=== PATIENT | male | born 1975 | race Hispanic/Latino ===

== ENCOUNTER 2019-02-16 13:35 | Emergency (ER) | payer MEDICAID, OTHER ==
--- NOTE | 2019-02-16 13:49 | Emergency Department Report ---
Blank Doc - Documentation Documentation: 43 y o male presents with SI states he took 30 tabs of 10/325mg 2 days ago denies HI/hallucination tearful MH labs orderd
[2019-02-16 14:24] LABS: Basophils # (Auto) 0.1 K/mm3 (0.0-0.1); Basophils % (Auto) 0.9 % (0.0-1.8); Eosinophils # (Auto) 0.2 K/mm3 (0.0-0.4); Eosinophils % (Auto) 2.6 % (0.0-4.3); Hematocrit 44.2 % (35.5-45.6); Hemoglobin 15.1 gm/dl (11.8-15.2); Lymphocytes # (Auto) 2.4 K/mm3 (1.2-5.4); Lymphocytes % (Auto) 31.2 % (13.4-35.0); Mean Corpuscular HGB Conc 34 % (32-34); Mean Corpuscular Volume 89 fl (84-94); Monocytes # (Auto) 0.5 K/mm3 (0.0-0.8); Platelet Count 215 K/mm3 (140-440); Red Cell Distribution Width 13.7 % (13.2-15.2)
[2019-02-16 15:12] LABS: Alanine Aminotransferase 19 units/L (7-56); Albumin 4.6 g/dL (3.9-5); BUN/Creatinine Ratio 10; Blood Urea Nitrogen 8 mg/dL (9-20); Calcium 9.4 mg/dL (8.4-10.2); Hemolysis Index 8
[2019-02-16] MEDS ORDERED: VALIUM PO ONE (15:29)
[2019-02-16 17:00] LABS: Benzodiazepines Screen,Urine PRESUMPTIVE NEGATIVE; Cocaine Screen,Urine PRESUMPTIVE NEGATIVE; Methadone Screen,Urine PRESUMPTIVE NEGATIVE
[2019-02-16 17:14] LABS: Amphetamine Screen,Urine PRESUMPTIVE POSITIVE; Cannabinoid Screen,Urine PRESUMPTIVE POSITIVE; Opiate Screen,Urine PRESUMPTIVE POSITIVE
[2019-02-16] MEDS ORDERED: GEODON IM ONE ×2 (18:54→18:55)
--- NOTE | 2019-02-16 19:44 | Emergency Department Report ---
ED Psych HPI - General Chief Complaint: Psych Stated Complaint: SI Time Seen by Provider: 02/16/19 13:44 Source: patient Mode of arrival: Ambulatory - History of Present Illness Initial Comments: Patient is a 43-year-old male who is here because suicidal ideations. Patient states that he is having thoughts of killing himself. He states he took overdose of Percocet 2 days ago. Patient states he took approximately 30 tablets. Patient is denying any abdominal pain nausea vomiting at this time. He denies any homicidal ideations. - Related Data Previous Rx's Medication Instructions Recorded Last Taken Type Ibuprofen [Motrin 800 MG tab] 800 mg PO Q8HR PRN #30 tablet 12/18/15 01/11/16 Rx traMADol [Ultram 50 MG tab] 50 mg PO Q6HR PRN #20 tablet 12/18/15 Unknown Rx Allergies Allergy/AdvReac Type Severity Reaction Status Date / Time sulfamethoxazole Allergy Hives Verified 11/30/15 01:46 [From Bactrim] trimethoprim [From Bactrim] Allergy Hives Verified 11/30/15 01:46 ED Review of Systems ROS: Stated complaint: SI Other details as noted in HPI Comment: All other systems reviewed and negative ED Past Medical Hx - Past Medical History Previous Medical History?: Yes Hx Hypertension: Yes (diet controlled) Hx Psychiatric Treatment: Yes (opiate dependence, depression) - Surgical History Past Surgical History?: Yes Additional Surgical History: tonsillectomy - Social History Smoking Status: Never Smoker - Medications Home Medications: Home Medications Medication Instructions Recorded Confirmed Last Taken Type Ibuprofen [Motrin 800 MG tab] 800 mg PO Q8HR PRN #30 tablet 12/18/15 01/11/16 Rx traMADol [Ultram 50 MG tab] 50 mg PO Q6HR PRN #20 tablet 12/18/15 Unknown Rx ED Physical Exam - General Limitations: No Limitations General appearance: alert, in no apparent distress - Head Head exam: Present: atraumatic, normocephalic - Eye Eye exam: Present: normal appearance - ENT ENT exam: Present: mucous membranes moist - Neck Neck exam: Present: normal inspection - Respiratory Respiratory exam: Present: normal lung sounds bilaterally. Absent: respiratory distress, wheezes, rales, rhonchi - Cardiovascular Cardiovascular Exam: Present: regular rate, normal rhythm. Absent: systolic murmur, diastolic murmur, rubs, gallop - GI/Abdominal GI/Abdominal exam: Present: soft, normal bowel sounds. Absent: distended, tenderness, guarding, rebound - Rectal Rectal exam: Present: deferred - Extremities Exam Extremities exam: Present: normal inspection - Back Exam Back exam: Present: normal inspection - Neurological Exam Neurological exam: Present: alert, oriented X3 - Psychiatric Psychiatric exam: Present: normal affect, normal mood - Skin Skin exam: Present: warm, dry, intact, normal color. Absent: rash ED Course Vital Signs 02/16/19 02/16/19 02/16/19 13:46 15:46 15:57 Temperature 98.3 F 97.9 F Pulse Rate 116 H 101 H Respiratory 16 18 18 Rate Blood Pressure 152/105 Blood Pressure 121/94 [Left] O2 Sat by Pulse 95 97 99 Oximetry ED Medical Decision Making - Lab Data Result diagrams: 02/16/19 14:01 02/16/19 14:01 Lab Results 02/16/19 02/16/19 02/16/19 Range/Units 14:01 14:01 14:01 WBC 7.6 (4.5-11.0) K/mm3 RBC 5.00 (3.65-5.03) M/mm3 Hgb 15.1 (11.8-15.2) gm/dl Hct 44.2 (35.5-45.6) % MCV 89 (84-94) fl MCH 30 (28-32) pg MCHC 34 (32-34) % RDW 13.7 (13.2-15.2) % Plt Count 215 (140-440) K/mm3 Lymph % (Auto) 31.2 (13.4-35.0) % [place] % (Auto) 7.0 (0.0-7.3) % Eos % (Auto) 2.6 (0.0-4.3) % Baso % (Auto) 0.9 (0.0-1.8) % Lymph # 2.4 (1.2-5.4) K/mm3 [place] # 0.5 (0.0-0.8) K/mm3 Eos # 0.2 (0.0-0.4) K/mm3 Baso # 0.1 (0.0-0.1) K/mm3 Seg Neutrophils % 58.3 (40.0-70.0) % Seg Neutrophils # 4.4 (1.8-7.7) K/mm3 Sodium 143 (137-145) mmol/L Potassium 4.3 (3.6-5.0) mmol/L Chloride 102.5 (98-107) mmol/L Carbon Dioxide 27 (22-30) mmol/L Anion Gap 18 mmol/L BUN 8 L (9-20) mg/dL Creatinine 0.8 (0.8-1.5) mg/dL Estimated GFR > 60 ml/min BUN/Creatinine Ratio 10 % Glucose 146 H (75-100) mg/dL Calcium 9.4 (8.4-10.2) mg/dL Total Bilirubin 0.30 (0.1-1.2) mg/dL AST 24 (5-40) units/L ALT 19 (7-56) units/L Alkaline Phosphatase 92 (35-129) units/L Total Protein 6.9 (6.3-8.2) g/dL Albumin 4.6 (3.9-5) g/dL Albumin/Globulin Ratio 2.0 % Salicylates < 0.3 L (2.8-20.0) mg/dL Urine Opiates Screen Urine Methadone Screen Acetaminophen (10.0-30.0) ug/mL Ur Barbiturates Screen Carbamazepine 2.0 L (4-12) ug/mL Ur Phencyclidine Scrn Ur Amphetamines Screen U Benzodiazepines Scrn [place] 0.1 (0.0-1.2) mmol/L Urine Cocaine Screen U Marijuana (THC) Screen Drugs of Abuse Note Plasma/Serum Alcohol (0-0.07) % 02/16/19 02/16/19 02/16/19 Range/Units 14:01 14:01 14:55 WBC (4.5-11.0) K/mm3 RBC (3.65-5.03) M/mm3 Hgb (11.8-15.2) gm/dl Hct (35.5-45.6) % MCV (84-94) fl MCH (28-32) pg MCHC (32-34) % RDW (13.2-15.2) % Plt Count (140-440) K/mm3 Lymph % (Auto) (13.4-35.0) % [place] % (Auto) (0.0-7.3) % Eos % (Auto) (0.0-4.3) % Baso % (Auto) (0.0-1.8) % Lymph # (1.2-5.4) K/mm3 [place] # (0.0-0.8) K/mm3 Eos # (0.0-0.4) K/mm3 Baso # (0.0-0.1) K/mm3 Seg Neutrophils % (40.0-70.0) % Seg Neutrophils # (1.8-7.7) K/mm3 Sodium (137-145) mmol/L Potassium (3.6-5.0) mmol/L Chloride (98-107) mmol/L Carbon Dioxide (22-30) mmol/L Anion Gap mmol/L BUN (9-20) mg/dL Creatinine (0.8-1.5) mg/dL Estimated GFR ml/min BUN/Creatinine Ratio % Glucose (75-100) mg/dL Calcium (8.4-10.2) mg/dL Total Bilirubin (0.1-1.2) mg/dL AST (5-40) units/L ALT (7-56) units/L Alkaline Phosphatase (35-129) units/L Total Protein (6.3-8.2) g/dL Albumin (3.9-5) g/dL Albumin/Globulin Ratio % Salicylates (2.8-20.0) mg/dL Urine Opiates Screen Presumptive positive Urine Methadone Screen Presumptive negative Acetaminophen < 5.0 L (10.0-30.0) ug/mL Ur Barbiturates Screen Presumptive negative Carbamazepine (4-12) ug/mL Ur Phencyclidine Scrn Presumptive negative Ur Amphetamines Screen Presumptive positive U Benzodiazepines Scrn Presumptive negative [place] (0.0-1.2) mmol/L Urine Cocaine Screen Presumptive negative U Marijuana (THC) Screen Presumptive positive Drugs of Abuse Note Disclamer Plasma/Serum Alcohol < 0.01 (0-0.07) % - Medical Decision Making Patient's acetaminophen level is within normal limits. Patient has no liver dysfunction saenz or jaundice at this time. I do not believe the patient to the overdose of 30 Percocet which would've been approximately 9 g of acetaminophen. Patient is stable and medically cleared at this time. On 1013. Critical care attestation.: If time is entered above; I have spent that time in minutes in the direct care of this critically ill patient, excluding procedure time. ED Disposition Clinical Impression: Suicidal ideation, Encounter for psychiatric assessment Disposition: [id number]/TX-65 PSY HOSP/PSY UNIT Is pt being admited?: No Does the pt Need Aspirin: No Condition: Stable Time of Disposition: 19:44
--- NOTE | 2019-02-17 12:04 | Consultation ---
History of Present Illness - Reason for Consult Consult date: 02/17/19 Reason for consult: Mental Health Evaluation Requesting physician: DELL CAPELLAN - Chief Complaint Chief complaint: "I was suicidal" - History of Present Psychiatric Illness 43-year-old male who presented to the ER for SI's. Today the patient is calm and cooperative during the assessment. He stated that he was suicidal ye sterday, but denies that he took Percocet pills to kill himself. He stated that he took several Percocet pills over several days to get "high." He stated that depression has a been a issue for him for several years along with having a drug addiction. He stated that he was a patient at a local mental health facility for depression recently. He stated that he isn't complaint with his medications (Ef fexor/Buspar). He rate his depression/anxiety 6/10, with 10 being the worse. He denies SI/HI's and AVH's. He denies a poor appetite and erratic sleep. He stated that he self medicate with recreational drugs to lower his anxiety and depression. He denies alcohol consumption (etoh). Medications and Allergies Allergies Allergy/AdvReac Type Severity Reaction Status Date / Time sulfamethoxazole Allergy Hives Verified 11/30/15 01:46 [From Bactrim] trimethoprim [From Bactrim] Allergy Hives Verified 11/30/15 01:46 Home Medications Medication Instructions Recorded Confirmed Last Taken Type Ibuprofen [Motrin 800 MG tab] 800 mg PO Q8HR PRN #30 tablet 12/18/15 02/16/19 01/11/16 Rx traMADol [Ultram 50 MG tab] 50 mg PO Q6HR PRN #20 tablet 12/18/15 02/16/19 Unknown Rx Past psychiatric history - Past Medical History Past Medical History: No medical history Past Surgical History: No surgical history - past Psychiatric treatment and history psychiatric treatment history: Several inpatient psy setting in the past" - Social History Social history: other (Homeless) Mental Status Exam - Vital signs Last Vital Signs Temp 97.3 F L 02/17/19 07:57 Pulse 82 02/17/19 07:57 Resp 18 02/17/19 07:57 BP 144/102 02/17/19 07:57 Pulse Ox 96 02/17/19 07:57 - Exam Narrative exam: MSE Appearance: calm, cooperative Behavior: regular eye contact Speech: regular rate and tone Mood: "tired" Affect: flat Thought Process: circumstantial Thought Content: denies SI/HI's and AVH's Motor Activity: ambulatory Cognition: A/O x 3 Insight: variable to fair Judgment: variable Results Result Diagrams: 02/16/19 14:01 02/16/19 14:01 Abnormal lab results 02/16/19 02/16/19 02/16/19 Range/Units 14:01 14:01 14:01 BUN 8 L (9-20) mg/dL Glucose 146 H (75-100) mg/dL Salicylates < 0.3 L (2.8-20.0) mg/dL Acetaminophen < 5.0 L (10.0-30.0) ug/mL Carbamazepine 2.0 L (4-12) ug/mL All other labs normal. Assessment and Plan Assessment and plan: Impression: MDD. Substance Use DO (amphetamines). Cannabis Use DO. Unspecified Anxiety DO. Intentional vs Unintentional overdose. Today the patient is calm and cooperative during the assessment. The patient is positive for opiates. DDx: Substance Induced Mood DO Recommendation/Plan: Continue 1013 and gather collateral information. Start Effexor 75 mg PO daily for depression and Buspar 7.5 mg PO BID for anxiety. Discussed possible suicidality/medication induced manai with the patient r eference Effexor. Dispo: The patient was referred to inpatient psy services. Will staff with Dr. Selvin Caldera.
[2019-02-17] MEDS: EFFEXOR PO SCH (12:56)
[2019-02-17] MEDS: BUSPAR PO SCH ×2 (12:56→22:11)
[2019-02-17 13:08] LABS: Bilirubin,Urine NEG (Negative); Blood,Urine NEG (Negative); Color,Urine Yellow (Yellow); Mucus,Urine 3+ /HPF; Protein,Urine <15 mg/dL mg/dL (Negative); Urobilinogen,Urine < 2.0 mg/dL (<2.0)
[2019-02-17] MEDS ORDERED: GEODON IM ONE ×2 (17:40→17:53)
[2019-02-17] MEDS ORDERED: ATIVAN ONE (17:47)
[2019-02-17] MEDS ORDERED: ATIVAN IM ONE (17:54)
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
--- NOTE | 2019-02-17 20:23 | XRay Report ---
PROCEDURE: XR FOOT 3+V LT TECHNIQUE: Frontal, lateral, oblique views left foot HISTORY: foot pain. injury COMPARISONS: None FINDINGS: There is no evidence of fracture or subluxation. The joint spaces appear to be maintained. The soft tissues are unremarkable. IMPRESSION: 1. No evidence of fracture or subluxation. This document is electronically signed by Lula Bright MD., February 17 2019 08:21:24 PM ET
[2019-02-18] MEDS: BUSPAR PO SCH ×2 (11:04→21:15)
[2019-02-18] MEDS: EFFEXOR PO SCH (11:30)
[2019-02-18] MEDS ORDERED: IBUPROFEN ONE (12:40)
[2019-02-18] MEDS: IBUPROFEN PO PRN ×3 (13:45→22:12)
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
[2019-02-18] MEDS: NEURONTIN PO SCH (21:15)
[2019-02-18] MEDS ORDERED: DESYREL PO SCH (22:00)
[2019-02-19] MEDS: NEURONTIN PO SCH ×2 (08:17→14:52)
[2019-02-19] MEDS: BUSPAR PO SCH ×2 (08:17→14:52)
[2019-02-19] MEDS ORDERED: EFFEXOR XR PO SCH (10:00)
[2019-02-19] MEDS: IBUPROFEN PO PRN (10:40)
[2019-02-19] MEDS ORDERED: ZESTRIL ONE (11:42)
[2019-02-19] MEDS ORDERED: ZESTRIL PO SCH (12:00)
--- NOTE | 2019-02-19 13:25 | Progress Note ---
Subjective - Reason for Consult Consult date: 02/19/19 Reason for consult: Initial Psychiatric Evaluation - Chief Complaint Chief complaint: Patient not seen. Patient transferred to a psychiatric facility. Mental Status Exam - Vital signs Last Vital Signs Temp 97.8 F 02/19/19 11:10 Pulse 101 H 02/19/19 12:05 Resp 18 02/19/19 11:10 BP 141/86 02/19/19 12:05 Pulse Ox 97 02/19/19 11:10
[2019-02-19 14:56] VITALS: BP 131/90
== END 2019-02-19 17:01 ==
LOC: EEVIPCON 13:35 → ED 13:35
DX: F32.9 Major depressive disorder, single episode, unspecified (principal); F41.9 Anxiety disorder, unspecified; F15.10 Other stimulant abuse, uncomplicated; F12.10 Cannabis abuse, uncomplicated; I10 Essential (primary) hypertension; Z90.89 Acquired absence of other organs; Z88.2 Allergy status to sulfonamides
CPT/HCPCS: 36415; 73630; 80053; 80156; 80178; 80307; 81001; 85025; 96372; 99285; G0480; J2060; J3486; 80320

== ENCOUNTER 2019-04-08 10:19 | Emergency (ER) | payer OTHER ==
[2019-04-08] MEDS ORDERED: MORPHINE IM ONE (11:39)
[2019-04-08] MEDS ORDERED: TORADOL IM ONE (11:40)
--- NOTE | 2019-04-08 11:46 | Emergency Department Report ---
ED Lower Extremity HPI - General Chief Complaint: Extremity Injury, Lower Stated Complaint: LT FOOT PAIN/SWOLLEN Time Seen by Provider: 04/08/19 11:30 Source: patient Mode of arrival: Ambulatory Limitations: No Limitations - History of Present Illness Initial Comments: Mr. Nava is a very pleasant male who injured his left foot 2 days ago. While attempting to hang up small piece in his home, he stepped down forcibly from a 3 foot step ladder landing on his left foot with most of his weight. Immediate swelling. Immediate severe pain. He is only able to walk on his heel due to the pain. Large amount of swelling. No knee or hip pain. No other injury. MD Complaint: foot injury -: Sudden, days(s) (2) Injury: Foot: Left Type of Injury: blunt Place: home Severity: severe Severity scale (0 -10): 10 Improves With: rest Worsens With: weight bearing Context: other (abrupt step from ladder) Associated Symptoms: swelling, able to partially bear weight - Related Data Previous Rx's Medication Instructions Recorded Last Taken Type Ibuprofen [Motrin 800 MG tab] 800 mg PO Q8HR PRN #30 tablet 12/18/15 01/11/16 Rx traMADol [Ultram 50 MG tab] 50 mg PO Q6HR PRN #20 tablet 12/18/15 Unknown Rx Oxycodone HCl/Acetaminophen 1 each PO Q6HR PRN #15 tablet 04/08/19 Unknown Rx [Percocet 10/325 mg] Allergies Allergy/AdvReac Type Severity Reaction Status Date / Time sulfamethoxazole Allergy Hives Verified 04/08/19 10:20 [From Bactrim] trimethoprim [From Bactrim] Allergy Hives Verified 04/08/19 10:20 ED Review of Systems ROS: Stated complaint: LT FOOT PAIN/SWOLLEN Other details as noted in HPI Constitutional: denies: fever, malaise Musculoskeletal: joint swelling, arthralgia Skin: denies: change in color ED Past Medical Hx - Past Medical History Previous Medical History?: Yes Hx Hypertension: Yes Hx Psychiatric Treatment: Yes (opiate dependence, depression) - Surgical History Additional Surgical History: tonsillectomy - Social History Smoking Status: Never Smoker Substance Use Type: None - Medications Home Medications: Home Medications Medication Instructions Recorded Confirmed Last Taken Type Ibuprofen [Motrin 800 MG tab] 800 mg PO Q8HR PRN #30 tablet 12/18/15 02/16/19 01/11/16 Rx traMADol [Ultram 50 MG tab] 50 mg PO Q6HR PRN #20 tablet 12/18/15 02/16/19 Unknown Rx Oxycodone HCl/Acetaminophen 1 each PO Q6HR PRN #15 tablet 04/08/19 Unknown Rx [Percocet 10/325 mg] ED Physical Exam - General Limitations: No Limitations General appearance: alert, in no apparent distress - Eye Eye exam: Absent: scleral icterus, conjunctival injection - Expanded Lower Extremity Exam Left Ankle exam: Present: normal inspection, full ROM. Absent: tenderness Foot/Toe exam: Present: tenderness, swelling (global severe swelling over the metatarsal joints), deformity, dislocation (wide gap in between the first and second toes), tenderness at base of 5th metatarsal. Absent: abrasion, laceration, ecchymosis, erythema, amputation, puncture wound, foreign body, ca lcaneal tenderness Neuro vascular tendon exam: Present: no vascular compromise. Absent: pulse deficit, motor deficit, sensory deficit, extremity cold to touch, foot drop Gait: Positive: not tested/not observed, observed and limited by pain ED Course Vital Signs 04/08/19 10:47 Temperature 98.2 F Pulse Rate 108 H Respiratory 18 Rate Blood Pressure 152/120 O2 Sat by Pulse 98 Oximetry ED Lower Extremity MDM - Radiology Data Radiology results: report reviewed, image reviewed interpreted by me: Lisfranc injury with displacement of the second third fourth and fifth metatarsals left foot Crutches Percocet prescription provided referred to orthopedic surgeon. Strict nonweightbearing status Left posterior splint was applied to the affected extremity under my supervision. After application the extremity was neurovascularly intact with acceptable alignment. Critical care attestation.: If time is entered above; I have spent that time in minutes in the direct care of this critically ill patient, excluding procedure time. ED Disposition Clinical Impression: Lisfranc dislocation Disposition: TO HOME OR SELFCARE Is pt being admited?: No Does the pt Need Aspirin: No Condition: Stable Instructions: Foot Fracture in Adults (ED) Prescriptions: Oxycodone HCl/Acetaminophen [Percocet 10/325 mg] 1 each PO Q6HR PRN #15 tablet PRN Reason: Pain Referrals: ASHLEY MILTON MD [Staff Physician] - 3-5 Days Forms: Work/School Release Form(ED)
--- NOTE | 2019-04-08 12:21 | XRay Report ---
PROCEDURE: XR FOOT 3+V LT TECHNIQUE: 2 views left foot HISTORY: pain swelling s/p fall from ladder 2d ago COMPARISONS: None FINDINGS: The second metatarsal does not line up with the middle cuneiform. Widening of the joint between the c uneiforms and the second metatarsal. Small bone fragments. Findings compatible with Lisfranc disrupti on. Soft tissue swelling over the dorsum of the foot. Remainder of the foot demonstrates no acute fracture. No sizable calcaneal spur. No advanced arthriti s IMPRESSION: Findings compatible with disruption of the Lisfranc joint. Widening of the space between the second m etatarsal and the cuneiforms. Chip fractures. Further evaluation with CT recommended.. [facility] call report initiated at 12:18 PM ET April 08, 2019 This document is electronically signed by Vitaly Cortez MD., April 08 2019 01:18:59 PM ET
[2019-04-08 12:25] VITALS: BP 146/87
== END 2019-04-08 12:25 | disposition home or self-care (01) ==
LOC: ED 10:19
DX: S93.325A Dislocation of tarsometatarsal joint of left foot, initial encounter (principal); I10 Essential (primary) hypertension; F32.9 Major depressive disorder, single episode, unspecified; Z90.89 Acquired absence of other organs; Z88.2 Allergy status to sulfonamides; W11.XXXA Fall on and from ladder, initial encounter; Y93.89 Activity, other specified; Y92.009 Unspecified place in unspecified non-institutional (private) residence as the place of occurrence of the external cause
CPT/HCPCS: 29515; 73630; 96372; 99283; J1885; J2270

== ENCOUNTER 2019-05-02 19:11 | Emergency (ER) | payer OTHER ==
[2019-05-02] MEDS ORDERED: ZESTRIL PO ONE (19:35)
[2019-05-02 20:07] LABS: Basophils # (Auto) 0.1 K/mm3 (0.0-0.1); Basophils % (Auto) 1.1 % (0.0-1.8); Eosinophils # (Auto) 0.2 K/mm3 (0.0-0.4); Eosinophils % (Auto) 2.9 % (0.0-4.3); Hematocrit 42.2 % (35.5-45.6); Hemoglobin 14.6 gm/dl (11.8-15.2); Lymphocytes # (Auto) 2.5 K/mm3 (1.2-5.4); Lymphocytes % (Auto) 34.6 % (13.4-35.0); Mean Corpuscular HGB Conc 35 % (32-34); Mean Corpuscular Volume 87 fl (84-94); Monocytes # (Auto) 0.5 K/mm3 (0.0-0.8); Monocytes % (Auto) 7.3 % (0.0-7.3); Platelet Count 240 K/mm3 (140-440); Red Blood Count 4.83 M/mm3 (3.65-5.03); Red Cell Distribution Width 13.6 % (13.2-15.2)
--- NOTE | 2019-05-02 20:09 | Event Note ---
ED Screening Note ED Screening Note: MED CLEARANCE This initial assessment/diagnostic orders/clinical plan/treatment(s) is/are subject to change based on patients health status, clinical progression and re- assessment by fellow clinical providers in the ED. Further treatment and workup at subsequent clinical providers discretion. Patient/guardian urged not to elope from the ED as their condition may be serious if not clinically assessed and managed. Initial orders include:
[2019-05-02 20:29] LABS: BUN/Creatinine Ratio 20; Blood Urea Nitrogen 16 mg/dL (9-20); Calcium 9.3 mg/dL (8.4-10.2); Hemolysis Index 11
[2019-05-02] MEDS ORDERED: CATAPRES PO ONE (20:30)
[2019-05-02] MEDS ORDERED: CATAPRES ONE (20:33)
[2019-05-02 21:42] VITALS: BP 150/99
--- NOTE | 2019-05-02 22:05 | Emergency Department Report ---
ED Medical Clearance HPI - General Chief complaint: Medical Clearance Stated complaint: HIGH B/P, MEDICAL CLEARANCE Time Seen by Provider: 05/02/19 20:30 Source: patient, EMS Mode of arrival: Ambulatory - History of Present Illness Initial comments: 43 yo sent here for medical clearance. His bp was noted to elevated so he was sent here for bp control. He is on lisinopril at home. Home medications: Previous Rx's Medication Instructions Recorded Last Taken Type Ibuprofen [Motrin 800 MG tab] 800 mg PO Q8HR PRN #30 tablet 12/18/15 01/11/16 Rx traMADol [Ultram 50 MG tab] 50 mg PO Q6HR PRN #20 tablet 12/18/15 Unknown Rx Oxycodone HCl/Acetaminophen 1 each PO Q6HR PRN #15 tablet 04/08/19 Unknown Rx [Percocet 10/325 mg] Lisinopril [Zestril TAB] 20 mg PO QDAY #30 tablet 05/02/19 Unknown Rx Allergies/Adverse reactions: Allergies Allergy/AdvReac Type Severity Reaction Status Date / Time sulfamethoxazole Allergy Hives Verified 04/08/19 10:20 [From Bactrim] trimethoprim [From Bactrim] Allergy Hives Verified 04/08/19 10:20 ED Review of Systems ROS: Stated complaint: HIGH B/P, MEDICAL CLEARANCE Other details as noted in HPI Comment: All other systems reviewed and negative ED Past Medical Hx - Past Medical History Previous Medical History?: Yes Hx Hypertension: Yes Hx Psychiatric Treatment: Yes (opiate dependence, depression) - Surgical History Additional Surgical History: tonsillectomy - Social History Smoking Status: Current Every Day Smoker Substance Use Type: Prescribed - Medications Home Medications: Home Medications Medication Instructions Recorded Confirmed Last Taken Type Ibuprofen [Motrin 800 MG tab] 800 mg PO Q8HR PRN #30 tablet 12/18/15 02/16/19 01/11/16 Rx traMADol [Ultram 50 MG tab] 50 mg PO Q6HR PRN #20 tablet 12/18/15 02/16/19 Unknown Rx Oxycodone HCl/Acetaminophen 1 each PO Q6HR PRN #15 tablet 04/08/19 Unknown Rx [Percocet 10/325 mg] Lisinopril [Zestril TAB] 20 mg PO QDAY #30 tablet 05/02/19 Unknown Rx ED Physical Exam - General Limitations: No Limitations General appearance: alert - Head Head exam: Present: normocephalic - Eye Eye exam: Present: normal appearance, PERRL - ENT ENT exam: Present: mucous membranes moist - Neck Neck exam: Present: normal inspection, full ROM - Respiratory Respiratory exam: Present: normal lung sounds bilaterally - Cardiovascular Cardiovascular Exam: Present: regular rate - GI/Abdominal GI/Abdominal exam: Present: soft, normal bowel sounds - Extremities Exam Extremities exam: Present: normal inspection, full ROM - Back Exam Back exam: Present: normal inspection, full ROM - Neurological Exam Neurological exam: Present: alert, oriented X3, CN II-XII intact - Psychiatric Psychiatric exam: Present: normal affect, normal mood - Skin Skin exam: Present: warm, intact ED Course Vital Signs 05/02/19 05/02/19 19:26 21:41 Temperature 98.3 F Pulse Rate 68 Respiratory 16 Rate Blood Pressure 180/102 150/99 O2 Sat by Pulse 99 Oximetry ED Medical Decision Making - Lab Data Result diagrams: 05/02/19 19:38 05/02/19 19:38 - Medical Decision Making Vital Signs 05/02/19 05/02/19 19:26 21:41 Temperature 98.3 F Pulse Rate 68 Respiratory 16 Rate Blood Pressure 180/102 150/99 O2 Sat by Pulse 99 Oximetry Lab Results 05/02/19 05/02/19 05/02/19 Range/Units 19:38 19:38 19:38 WBC 7.3 (4.5-11.0) K/mm3 RBC 4.83 (3.65-5.03) M/mm3 Hgb 14.6 (11.8-15.2) gm/dl Hct 42.2 (35.5-45.6) % MCV 87 (84-94) fl MCH 30 (28-32) pg MCHC 35 H (32-34) % RDW 13.6 (13.2-15.2) % Plt Count 240 (140-440) K/mm3 Lymph % (Auto) 34.6 (13.4-35.0) % [place] % (Auto) 7.3 (0.0-7.3) % Eos % (Auto) 2.9 (0.0-4.3) % Baso % (Auto) 1.1 (0.0-1.8) % Lymph # 2.5 (1.2-5.4) K/mm3 [place] # 0.5 (0.0-0.8) K/mm3 Eos # 0.2 (0.0-0.4) K/mm3 Baso # 0.1 (0.0-0.1) K/mm3 Seg Neutrophils % 54.1 (40.0-70.0) % Seg Neutrophils # 3.9 (1.8-7.7) K/mm3 Sodium 140 (137-145) mmol/L Potassium 4.3 (3.6-5.0) mmol/L Chloride 100.7 (98-107) mmol/L Carbon Dioxide 28 (22-30) mmol/L Anion Gap 16 mmol/L BUN 16 (9-20) mg/dL Creatinine 0.8 (0.8-1.5) mg/dL Estimated GFR > 60 ml/min BUN/Creatinine Ratio 20 % Glucose 132 H (75-100) mg/dL Calcium 9.3 (8.4-10.2) mg/dL Plasma/Serum Alcohol < 0.01 (0-0.07) % medicated for bp with clonidine and bp decreased pt has no headache, chest pain or sob dc to anchor - Differential Diagnosis htn ED Disposition Clinical Impression: HTN (hypertension), Medical clearance for psychiatric admission Disposition: DC-01 TO HOME OR SELFCARE Is pt being admited?: No Does the pt Need Aspirin: No Condition: Stable Instructions: Hypertension (ED) Prescriptions: Lisinopril [Zestril TAB] 20 mg PO QDAY #30 tablet Referrals: GARRETT ABERNATHY MD [Staff Physician] - 3-5 Days Time of Disposition: 22:04
[2019-05-02 23:55] LABS: Amphetamine Screen,Urine PRESUMPTIVE NEGATIVE; Benzodiazepines Screen,Urine PRESUMPTIVE NEGATIVE; Cocaine Screen,Urine PRESUMPTIVE NEGATIVE; Methadone Screen,Urine PRESUMPTIVE NEGATIVE; Opiate Screen,Urine PRESUMPTIVE NEGATIVE
[2019-05-03 00:08] LABS: Cannabinoid Screen,Urine PRESUMPTIVE POSITIVE
== END 2019-05-02 22:02 | disposition home or self-care (01) ==
LOC: ED 19:11
DX: I10 Essential (primary) hypertension (principal); F32.9 Major depressive disorder, single episode, unspecified; F17.200 Nicotine dependence, unspecified, uncomplicated; Z90.49 Acquired absence of other specified parts of digestive tract; Z79.899 Other long term (current) drug therapy; Z88.2 Allergy status to sulfonamides
CPT/HCPCS: 36415; 80048; 80307; 85025; 99283; G0480; 80320

== ENCOUNTER 2019-07-04 17:53 | Emergency (ER) | payer SELFPAY ==
[2019-07-04 19:12] VITALS: BP 142/99
--- NOTE | 2019-07-04 19:13 | Event Note ---
ED Screening Note Date of service: 07/04/19 Time: 19:12 ED Screening Note: pt was running yesterday when he accidentally fell and cc of left hip and back pain This initial assessment/diagnostic orders/clinical plan/treatment(s) is/are subject to change based on patients health status, clinical progression and re- assessment by fellow clinical providers in the ED. Further treatment and workup at subsequent clinical providers discretion. Patient/guardian urged not to elope from the ED as their condition may be serious if not clinically assessed and managed. Initial orders include: xr hip
[2019-07-04] MEDS ORDERED: PERCOCET 5/325 PO STA (20:30)
== END 2019-07-04 21:45 | disposition left against medical advice (07) ==
LOC: ED 17:53
DX: M25.551 Pain in right hip (principal); Z53.21 Procedure and treatment not carried out due to patient leaving prior to being seen by health care provider

== ENCOUNTER 2019-07-05 00:52 | Emergency (ER) | payer SELFPAY ==
[2019-07-05 01:21] LABS: Basophils # (Auto) 0.1 K/mm3 (0.0-0.1); Basophils % (Auto) 0.9 % (0.0-1.8); Eosinophils # (Auto) 0.2 K/mm3 (0.0-0.4); Eosinophils % (Auto) 2.4 % (0.0-4.3); Hematocrit 40.3 % (35.5-45.6); Hemoglobin 13.7 gm/dl (11.8-15.2); Lymphocytes # (Auto) 2.3 K/mm3 (1.2-5.4); Lymphocytes % (Auto) 25.9 % (13.4-35.0); Mean Corpuscular HGB Conc 34 % (32-34); Mean Corpuscular Volume 90 fl (84-94); Monocytes # (Auto) 0.7 K/mm3 (0.0-0.8); Monocytes % (Auto) 7.7 % (0.0-7.3); Platelet Count 206 K/mm3 (140-440); Red Blood Count 4.51 M/mm3 (3.65-5.03); Red Cell Distribution Width 14.4 % (13.2-15.2)
--- NOTE | 2019-07-05 01:33 | Emergency Department Report ---
ED Psych HPI - General Chief Complaint: Psych Stated Complaint: MEDICAL CLEARANCE Time Seen by Provider: 07/05/19 01:26 Source: patient, EMS, old records reviewed Mode of arrival: Ambulatory - History of Present Illness Initial Comments: Patient is 44 years old male with history of depression and opiate abuse. Patient presented to the ER requesting medical clearance to be admitted to [facility] facility for detox. Patient stated that he is depressed and feeling suicidal. Patient does not have any plan. Patient denied any homicidal ideation. He also denied any visual or auditory hallucination. MD Complaint: suicidal ideation, feels depressed - Related Data Previous Rx's Medication Instructions Recorded Last Taken Type Ibuprofen [Motrin 800 MG tab] 800 mg PO Q8HR PRN #30 tablet 12/18/15 01/11/16 Rx traMADol [Ultram 50 MG tab] 50 mg PO Q6HR PRN #20 tablet 12/18/15 Unknown Rx Oxycodone HCl/Acetaminophen 1 each PO Q6HR PRN #15 tablet 04/08/19 Unknown Rx [Percocet 10/325 mg] Lisinopril [Zestril TAB] 20 mg PO QDAY #30 tablet 05/02/19 Unknown Rx Allergies Allergy/AdvReac Type Severity Reaction Status Date / Time sulfamethoxazole Allergy Hives Verified 04/08/19 10:20 [From Bactrim] trimethoprim [From Bactrim] Allergy Hives Verified 04/08/19 10:20 ED Review of Systems ROS: Stated complaint: MEDICAL CLEARANCE Other details as noted in HPI Comment: All other systems reviewed and negative Constitutional: denies: chills, fever Cardiovascular: denies: chest pain Gastrointestinal: denies: abdominal pain, nausea, vomiting, diarrhea, constipation, hematemesis, melena, hematochezia Genitourinary: denies: urgency, dysuria, frequency, hematuria Musculoskeletal: denies: back pain Neurological: denies: headache, weakness Psychiatric: depression, suicidal thoughts. denies: auditory hallucinations, visual hallucinations, homicidal thoughts ED Past Medical Hx - Past Medical History Previous Medical History?: Yes Hx Hypertension: Yes Hx Psychiatric Treatment: Yes (opiate dependence, depression) - Surgical History Past Surgical History?: Yes Additional Surgical History: tonsillectomy - Social History Smoking Status: Current Every Day Smoker Substance Use Type: Marijuana, Other - Medications Home Medications: Home Medications Medication Instructions Recorded Confirmed Last Taken Type Ibuprofen [Motrin 800 MG tab] 800 mg PO Q8HR PRN #30 tablet 12/18/15 02/16/19 01/11/16 Rx traMADol [Ultram 50 MG tab] 50 mg PO Q6HR PRN #20 tablet 12/18/15 02/16/19 Unknown Rx Oxycodone HCl/Acetaminophen 1 each PO Q6HR PRN #15 tablet 04/08/19 Unknown Rx [Percocet 10/325 mg] Lisinopril [Zestril TAB] 20 mg PO QDAY #30 tablet 05/02/19 Unknown Rx ED Physical Exam - General Limitations: No Limitations General appearance: alert, in no apparent distress - Head Head exam: Present: atraumatic, normocephalic, normal inspection - Eye Eye exam: Present: normal appearance, PERRL - ENT ENT exam: Present: normal exam, normal orophraynx, mucous membranes moist - Neck Neck exam: Present: normal inspection, full ROM. Absent: tenderness, meningismus, lymphadenopathy, thyromegaly - Respiratory Respiratory exam: Present: normal lung sounds bilaterally - Cardiovascular Cardiovascular Exam: Present: regular rate, normal rhythm, normal heart sounds - GI/Abdominal GI/Abdominal exam: Present: soft, normal bowel sounds. Absent: distended, te nderness, guarding, rebound, rigid, organomegaly, mass, bruit, pulsatile mass, hernia - Extremities Exam Extremities exam: Present: normal inspection, full ROM, normal capillary refill. Absent: tenderness, pedal edema, calf tenderness - Back Exam Back exam: Present: normal inspection, full ROM. Absent: CVA tenderness (R), CVA tenderness (L), muscle spasm, paraspinal tenderness, vertebral tenderness - Neurological Exam Neurological exam: Present: alert, oriented X3, CN II-XII intact, normal gait, reflexes normal - Psychiatric Psychiatric exam: Present: normal mood - Skin Skin exam: Present: warm, intact, normal color ED Course Vital Signs 07/05/19 00:54 Temperature 98.5 F Pulse Rate 88 Respiratory 18 Rate Blood Pressure 156/102 O2 Sat by Pulse 98 Oximetry ED Medical Decision Making - Lab Data Result diagrams: 07/05/19 01:02 Critical care attestation.: If time is entered above; I have spent that time in minutes in the direct care of this critically ill patient, excluding procedure time. ED Disposition Clinical Impression: Depression, Suicidal ideation, Opioid abuse Disposition: DC/TX-65 PSY HOSP/PSY UNIT Is pt being admited?: No Condition: Stable
[2019-07-05 01:35] LABS: Amorphous Crystals,Urine Few; Bacteria,Urine 1+ /HPF (Negative); Bilirubin,Urine NEG (Negative); Blood,Urine NEG (Negative); Color,Urine Yellow (Yellow); Mucus,Urine FEW /HPF; Protein,Urine <15 mg/dL mg/dL (Negative)
[2019-07-05 01:37] LABS: BUN/Creatinine Ratio 19; Blood Urea Nitrogen 13 mg/dL (9-20); Calcium 8.9 mg/dL (8.4-10.2); Hemolysis Index 7
[2019-07-05 01:38] LABS: Amphetamine Screen,Urine PRESUMPTIVE NEGATIVE; Benzodiazepines Screen,Urine PRESUMPTIVE NEGATIVE; Methadone Screen,Urine PRESUMPTIVE NEGATIVE; Opiate Screen,Urine PRESUMPTIVE NEGATIVE
[2019-07-05 01:57] LABS: Cannabinoid Screen,Urine PRESUMPTIVE POSITIVE; Cocaine Screen,Urine PRESUMPTIVE POSITIVE
[2019-07-06 02:14] VITALS: BP 138/90
== END 2019-07-06 02:18 ==
LOC: EEVIPCON 00:52 → ED 00:52
DX: F32.9 Major depressive disorder, single episode, unspecified (principal); F17.200 Nicotine dependence, unspecified, uncomplicated; F11.10 Opioid abuse, uncomplicated; Z90.89 Acquired absence of other organs; Z88.2 Allergy status to sulfonamides
CPT/HCPCS: 36415; 80048; 80307; 80320; 81001; 85025; 87086; G0480

== ENCOUNTER 2019-08-16 21:42 | Emergency (ER) | payer SELFPAY ==
--- NOTE | 2019-08-16 22:58 | Event Note ---
ED Screening Note Date of service: 08/16/19 Time: 22:57 ED Screening Note: 44 y/o male comes in for possible UTI. Having pink urine This initial assessment/diagnostic orders/clinical plan/treatment(s) is/are subject to change based on patients health status, clinical progression and re-assessment by fellow clinical providers in the ED. Further treatment and workup at subsequent clinical providers discretion. Patient/guardian urged not to elope from the ED as their condition may be serious if not clinically assessed and managed. Initial orders include:
[2019-08-16 23:57] LABS: Bilirubin,Urine NEG (Negative); Blood,Urine LG (Negative); Color,Urine Yellow (Yellow); Mucus,Urine FEW /HPF; Urobilinogen,Urine < 2.0 mg/dL (<2.0)
[2019-08-17 00:04] LABS: RBC,Urine > 182.0 /HPF (0.0-6.0)
[2019-08-17] MEDS ORDERED: KETOROLAC 30 MG/1 ML INJ IV ONE (01:12)
[2019-08-17] MEDS ORDERED: cefTRIAXone/NS 1 GM/50 ML 1 GM/50 ML BAG IV ONE (01:12)
[2019-08-17] MEDS ORDERED: ONDANSETRON 4 MG/2 ML INJ IV ONE (01:12)
[2019-08-17] MEDS ORDERED: SODIUM CHLORIDE 0.9% 1000 ML 1,000 ML IV ONE (01:13)
[2019-08-17] MEDS ORDERED: TAMSULOSIN 0.4 MG CAP PO ONE (01:42)
[2019-08-17 01:57] LABS: Basophils # (Auto) 0.1 K/mm3 (0.0-0.1); Basophils % (Auto) 0.7 % (0.0-1.8); Eosinophils # (Auto) 0.2 K/mm3 (0.0-0.4); Eosinophils % (Auto) 2.1 % (0.0-4.3); Hemoglobin 12.9 gm/dl (11.8-15.2); Lymphocytes # (Auto) 2.6 K/mm3 (1.2-5.4); Lymphocytes % (Auto) 30.7 % (13.4-35.0); Mean Corpuscular HGB Conc 34 % (32-34); Mean Corpuscular Volume 88 fl (84-94); Monocytes # (Auto) 0.5 K/mm3 (0.0-0.8); Monocytes % (Auto) 6.2 % (0.0-7.3); Platelet Count 259 K/mm3 (140-440)
[2019-08-17 02:07] LABS: Alanine Aminotransferase 15 units/L (7-56); Albumin 3.9 g/dL (3.9-5); BUN/Creatinine Ratio 18; Blood Urea Nitrogen 14 mg/dL (9-20); Calcium 8.3 mg/dL (8.4-10.2); Hemolysis Index 3
--- NOTE | 2019-08-17 02:40 | Cat Scan Report ---
CT ABDOMEN AND PELVIS WITHOUT CONTRAST INDICATION / CLINICAL INFORMATION: right flank pain - kidney stone r/o. TECHNIQUE: Axial CT images were obtained through the abdomen and pelvis without IV contrast. All CT scans at [facility] location are performed using CT dose reduction for ALARA by means of automated exposure control. COMPARISON: None available. FINDINGS: LOWER CHEST: No significant abnormality. LIVER: No significant abnormality. GALLBLADDER: No significant abnormality. BILE DUCTS: No significant abnormality. PANCREAS: No significant abnormality. SPLEEN: No significant abnormality. ADRENALS: No significant abnormality. RIGHT KIDNEY and URETER: Punctate, nonobstructive stone in the right lower pole. No ureteral stone id entified. No hydronephrosis. LEFT KIDNEY and URETER: No significant abnormality. STOMACH and SMALL BOWEL: No significant abnormality. COLON: No significant abnormality. APPENDIX: No significant abnormality. PERITONEUM: No free fluid. No free air. No fluid collection. LYMPH NODES: No significant adenopathy. AORTA and ARTERIES: No significant abnormality. IVC and VEINS: No significant abnormality. URINARY BLADDER: No significant abnormality. REPRODUCTIVE ORGANS: No significant abnormality. ADDITIONAL FINDINGS: None. SKELETAL SYSTEM: No significant abnormality. IMPRESSION: 1. Punctate nonobstructive right renal stone. No ureteral stone or hydronephrosis identified. Signer Name: Pamela Smith MD Signed: 08/17/2019 2:35 AM Workstation Name: [id number]
--- NOTE | 2019-08-17 02:53 | Emergency Department Report ---
ED Abdominal Pain HPI - General Chief Complaint: Abdominal Pain Stated Complaint: RIGHT FLANK PAIN,KIDNEY STONES Time Seen by Provider: 08/16/19 22:55 Source: patient Mode of arrival: Ambulatory Limitations: No Limitations - History of Present Illness Initial Comments: Patient is a 44-year-old white male with a history of kidney stones presents to the ED with complaint of acute onset persistent severe right flank pain that is elevated to the right lower quadrant area with nausea and hematuria for the last 2 days. Patient states that the pain has been persistent and sharp and constant. Patient denies fever, chills, vomiting, dizziness, headache, chest pain, shortness of breath, testicular pain, dysuria, urinary frequency and urgency or diarrhea. Patient states that the pain is typical of his chronic kidney stone pains. MD Complaint: abdominal pain, flank pain (right), other (nausea) -: Sudden, days(s) (2) Location: R flank Radiation: RLQ, R flank Migration to: no migration Severity scale (0 -10): 7 Quality: aching, sharp Consistency: constant Improves With: nothing Worsens With: nothing Associated Symptoms: denies other symptoms, nausea. denies: vomiting, diarrhea, fever, chills, constipation, hematemesis, hematochezia, melena, hematuria, syncope - Related Data Previous Rx's Medication Instructions Recorded Last Taken Type Lisinopril [Zestril TAB] 20 mg PO QDAY #30 tablet 05/02/19 Unknown Rx Ciprofloxacin HCl [Ciprofloxacin 500 mg PO Q12HR #20 tab 08/17/19 Unknown Rx TAB] Ketorolac [Toradol] 10 mg PO Q8H PRN #20 tablet 08/17/19 Unknown Rx Ondansetron [Zofran Odt] 4 mg PO Q6HR PRN #20 tab.rapdis 08/17/19 Unknown Rx Tamsulosin [Flomax] 0.4 mg PO QDAY #7 cap 08/17/19 Unknown Rx oxyCODONE /ACETAMINOPHEN [Percocet 1 tab PO Q6HR PRN #10 tablet 08/17/19 Unknown Rx 5/325] Allergies Allergy/AdvReac Type Severity Reaction Status Date / Time sulfamethoxazole Allergy Hives Verified 04/08/19 10:20 [From Bactrim] trimethoprim [From Bactrim] Allergy Hives Verified 04/08/19 10:20 ED Review of Systems ROS: Stated complaint: RIGHT FLANK PAIN,KIDNEY STONES Other details as noted in HPI Constitutional: denies: chills, fever Eyes: denies: eye pain, eye discharge, vision change ENT: denies: ear pain, throat pain Respiratory: denies: cough, shortness of breath, wheezing Cardiovascular: denies: chest pain, palpitations Endocrine: no symptoms reported Gastrointestinal: abdominal pain (right flank pain). denies: nausea, vomiting, diarrhea Genitourinary: denies: urgency, dysuria Musculoskeletal: back pain (lower). denies: joint swelling, arthralgia Skin: denies: rash, lesions Neurological: denies: headache, weakness, paresthesias Psychiatric: denies: anxiety, depression Hematological/Lymphatic: denies: easy bleeding, easy bruising ED Past Medical Hx - Past Medical History Previous Medical History?: Yes Hx Hypertension: Yes Hx CVA: No Hx Heart Attack/AMI: No Hx Congestive Heart Failure: No Hx Diabetes: No Hx Deep Vein Thrombosis: No Hx Pulmonary Embolism: No Hx GERD: No Hx Liver Disease: No Hx Renal Disease: No Hx of Cancer: No Hx Sickle Cell Disease: No Hx Arthritis: No Hx Headaches / Migraines: No Hx Seizures: No Hx Kidney Stones: No Hx Psychiatric Treatment: Yes (opiate dependence, depression) Hx Asthma: No Hx COPD: No Hx Tuberculosis: No Hx Dementia: No Hx HIV: No Additional medical history: kidney stones - Surgical History Past Surgical History?: Yes Hx Coronary Stent: No Hx Open Heart Surgery: No Hx Pacemaker: No Hx Internal Defibrillator: No Hx Cholecystectomy: No Hx Appendectomy: No Hx Breast Surgery: No Additional Surgical History: tonsillectomy - Social History Smoking Status: Current Every Day Smoker - Medications Home Medications: Home Medications Medication Instructions Recorded Confirmed Last Taken Type Lisinopril [Zestril TAB] 20 mg PO QDAY #30 tablet 05/02/19 07/05/19 Unknown Rx Ciprofloxacin HCl [Ciprofloxacin 500 mg PO Q12HR #20 tab 08/17/19 Unknown Rx TAB] Ketorolac [Toradol] 10 mg PO Q8H PRN #20 tablet 08/17/19 Unknown Rx Ondansetron [Zofran Odt] 4 mg PO Q6HR PRN #20 tab.rapdis 08/17/19 Unknown Rx Tamsulosin [Flomax] 0.4 mg PO QDAY #7 cap 08/17/19 Unknown Rx oxyCODONE /ACETAMINOPHEN [Percocet 1 tab PO Q6HR PRN #10 tablet 08/17/19 U nknown Rx 5/325] ED Physical Exam - General Limitations: No Limitations General appearance: alert, in no apparent distress - Head Head exam: Present: atraumatic, normocephalic, normal inspection - Eye Eye exam: Present: normal appearance, PERRL, EOMI Pupils: Present: normal accommodation - ENT ENT exam: Present: normal exam, normal orophraynx, mucous membranes moist, TM's normal bilaterally, normal external ear exam - Neck Neck exam: Present: normal inspection, full ROM - Respiratory Respiratory exam: Present: normal lung sounds bilaterally. Absent: respiratory distress, wheezes, rales, rhonchi, chest wall tenderness, accessory muscle use - Cardiovascular Cardiovascular Exam: Present: regular rate, normal rhythm, normal heart sounds. Absent: systolic murmur, diastolic murmur, rubs, gallop - GI/Abdominal GI/Abdominal exam: Present: soft, tenderness (Palpable right flank tenderness), normal bowel sounds. Absent: guarding, rebound, hyperactive bowel sounds, hypoactive bowel sounds, organomegaly - Rectal Rectal exam: Present: deferred - Extremities Exam Extremities exam: Present: normal inspection, full ROM, normal capillary refill - Back Exam Back exam: Present: normal inspection, full ROM. Absent: tenderness, CVA tenderness (R), CVA tenderness (L), muscle spasm, paraspinal tenderness - Neurological Exam Neurological exam: Present: alert, oriented X3, CN II-XII intact, normal gait, reflexes normal - Psychiatric Psychiatric exam: Present: normal affect, normal mood - Skin Skin exam: Present: warm, dry, intact, normal color. Absent: rash ED Course Vital Signs 08/16/19 08/16/19 08/17/19 22:02 22:55 01:25 Temperature 98.4 F 98.4 F Pulse Rate 78 82 Respiratory 18 18 16 Rate Blood Pressure 126/85 126/85 O2 Sat by Pulse 99 100 Oximetry 08/17/19 01:55 Temperature Pulse Rate Respiratory 18 Rate Blood Pressure O2 Sat by Pulse Oximetry - Reevaluation(s) Reevaluation #1: 08/17/19 03:23 This is a 44-year-old male with a history of chronic kidney stones who presented to the ED with acute onset right flank pain with nausea and hematuria. In the ED, patient is alert and oriented 3 and is not in distress but appears to be in pain. Patient was treated for pain in the ED and also received normal saline 1 L IV bolus and Zofran for nausea. Lab test results were reviewed and are all nonactionable except for urinalysis that showed significant blood and urinary tract infection. Abdomen pelvis CT scan without contrast shows a punctate nonobstructive right renal stone. No ureteral stone or hydronephrosis identified. On reevaluation, patient's pain is well controlled with medications. Patient also received Rocephin 1 g IV 1 and Flomax 0.4 mg by mouth 1 in the ED. Patient was discharged home on pain medications and antibiotics and advised to follow-up with his primary care physician or urolo gist in 7-10 days for reevaluation. Patient was advised to return to the ED immediately if symptoms get worse. ED Medical Decision Making - Lab Data Result diagrams: 08/17/19 01:21 08/17/19 01:21 - Radiology Data Radiology results: report reviewed, image reviewed Findings [facility] [address] [place] [address] Cat Scan Report Signed Patient: BRANDT MINER MR#: [id number] : 1975 Acct:[id number] Age/Sex: 44 / M ADM Date: 08/16/19 Loc: ED Attending Dr: Ordering Physician: MAINE LEDEZMA Date of Service: 08/17/19 Procedure(s): CT abdomen pelvis wo con Accession Number(s): [id number] cc: MAINE LEDEZMA CT ABDOMEN AND PELVIS WITHOUT CONTRAST INDICATION / CLINICAL INFORMATION: right flank pain - kidney stone r/o. TECHNIQUE: Axial CT images were obtained through the abdomen and pelvis without IV contrast. All CT scans at this location are performed using CT dose reduction for ALARA by means of automated exposure control. COMPARISON: None available. FINDINGS: LOWER CHEST: No significant abnormality. LIVER: No significant abnormality. GALLBLADDER: No significant abnormality. BILE DUCTS: No significant abnormality. PANCREAS: No significant abnormality. SPLEEN: No significant abnormality. ADRENALS: No significant abnormality. RIGHT KIDNEY and URETER: Punctate, nonobstructive stone in the right lower pole. No ureteral stone identified. No hydronephrosis. LEFT KIDNEY and URETER: No significant abnormality. STOMACH and SMALL BOWEL: No significant abnormality. COLON: No significant abnormality. APPENDIX: No significant abnormality. PERITONEUM: No free fluid. No free air. No fluid collection. LYMPH NODES: No significant adenopathy. AORTA and ARTERIES: No significant abnormality. IVC and VEINS: No significant abnormality. URINARY BLADDER: No significant abnormality. REPRODUCTIVE ORGANS: No significant abnormality. ADDITIONAL FINDINGS: None. SKELETAL SYSTEM: No significant abnormality. IMPRESSION: 1. Punctate nonobstructive right renal stone. No ureteral stone or hydronephrosis identified. Signer Name: Pamela Smith MD Signed: 08/17/2019 2:35 AM Workstation Name: [id number] Transcribed By: [facility] Dictated By: Pamela Smith MD Electronically Authenticated By: Pamela Smith MD Signed Date/Time: 08/17/19 0235 DD/ 02 - Medical Decision Making This is a 44-year-old male with a history of chronic kidney stones who presented to the ED with acute onset right flank pain with nausea and hematuria. In the ED, patient is alert and oriented 3 and is not in distress but appears to be in pain. Patient was treated for pain in the ED and also received normal saline 1 L IV bolus and Zofran for nausea. Lab test results were reviewed and are all nonactionable except for urinalysis that showed significant blood and urinary tract infection. Abdomen pelvis CT scan without contrast shows a punctate nonobstructive right renal stone. No ureteral stone or hydronephrosis identified. On reevaluation, patient's pain is well controlled with medications. Patient also received Rocephin 1 g IV 1 and Flomax 0.4 mg by mouth 1 in the ED. Patient was discharged home on pain medications and antibiotics and advised to follow-up with his primary care physician or urologist in 7-10 days for reevaluation. Patient was advised to return to the ED immediately if symptoms get worse. - Differential Diagnosis flank pain, kidney stones, UTI; Appendicitis; Colitis Critical care attestation.: If time is entered above; I have spent that time in minutes in the direct care of this critically ill patient, excluding procedure time. ED Disposition Clinical Impression: Acute abdominal pain in right flank, Right kidney stone, Acute urinary tract infection Disposition: DC-01 TO HOME OR SELFCARE Is pt being admited?: No Does the pt Need Aspirin: No Condition: Stable Instructions: Kidney Stones (ED), Urinary Tract Infection in Men (ED), Flank P ain (ED) Additional Instructions: Take medications with food, drink plenty of fluids and follow-up with your urologist in 5-7 days for reevaluation. Return to the ED immediately if symptoms get worse. Prescriptions: Ciprofloxacin HCl [Ciprofloxacin TAB] 500 mg PO Q12HR #20 tab Tamsulosin [Flomax] 0.4 mg PO QDAY #7 cap oxyCODONE /ACETAMINOPHEN [Percocet 5/325] 1 tab PO Q6HR PRN #10 tablet PRN Reason: Pain Ketorolac [Toradol] 10 mg PO Q8H PRN #20 tablet PRN Reason: Pain Ondansetron [Zofran Odt] 4 mg PO Q6HR PRN #20 tab.rapdis PRN Reason: Nausea Referrals: PRIMARY CARE, [Primary Care Provider] - 3-5 Days Forms: Work/School Release Form(ED) Time of Disposition: 02:51 Print Language: [place]
[2019-08-17 03:24] VITALS: BP 113/64
== END 2019-08-17 03:23 | disposition home or self-care (01) ==
LOC: ED 21:42
DX: N39.0 Urinary tract infection, site not specified (principal); N20.0 Calculus of kidney; I10 Essential (primary) hypertension; F32.9 Major depressive disorder, single episode, unspecified; F17.200 Nicotine dependence, unspecified, uncomplicated; Z90.89 Acquired absence of other organs; Z88.2 Allergy status to sulfonamides
CPT/HCPCS: 36415; 74176; 80053; 81001; 83690; 85025; 87086; 96365; 96375; 99284; J0696; J1885; J2405; J7030

== ENCOUNTER 2019-10-24 10:25 | Emergency (ER) | payer SELFPAY ==
--- NOTE | 2019-10-24 11:16 | XRay Report ---
Left shoulder 3 views INDICATION: Left shoulder pain. IMPRESSION: No fracture or subluxation of the left shoulder is identified. Signer Name: Abraham Han MD Signed: 10/24/2019 11:04 AM Workstation Name: [email or web address]
[2019-10-24] MEDS ORDERED: KETOROLAC 60 MG/2 ML INJ IM ONE (11:27)
--- NOTE | 2019-10-24 11:33 | Emergency Department Report ---
ED Extremity Problem HPI - General Chief complaint: Shoulder Injury Stated complaint: FALL INJURY/LT SHOULDER Time Seen by Provider: 10/24/19 11:14 Source: patient Mode of arrival: Ambulatory Limitations: No Limitations - History of Present Illness Initial comments: Patient is a 44-year-old male who was getting out of his truck this morning and fell. Patient fell onto his left arm after stretching it out to break his fall. Patient states he has pain at the left shoulder this time. Patient denies loss of consciousness or head injury. Patient states the pain is worse with movement of the left upper extremity better with rest. Severity scale (0 -10): 5 Quality: aching Consistency: constant - Related Data Previous Rx's Medication Instructions Recorded Last Taken Type Lisinopril [Zestril TAB] 20 mg PO QDAY #30 tablet 05/02/19 Unknown Rx Ciprofloxacin HCl [Ciprofloxacin 500 mg PO Q12HR #20 tab 08/17/19 Unknown Rx TAB] Ketorolac [Toradol] 10 mg PO Q8H PRN #20 tablet 08/17/19 Unknown Rx Ondansetron [Zofran Odt] 4 mg PO Q6HR PRN #20 tab.rapdis 08/17/19 Unknown Rx Tamsulosin [Flomax] 0.4 mg PO QDAY #7 cap 08/17/19 Unknown Rx oxyCODONE /ACETAMINOPHEN [Percocet 1 tab PO Q6HR PRN #10 tablet 08/17/19 Unknown Rx 5/325] Ibuprofen [Motrin 800 MG tab] 800 mg PO Q8HR PRN #10 tablet 10/24/19 Unknown Rx methOCARBAMOL [Robaxin TAB] 500 mg PO Q6H PRN #14 tablet 10/24/19 Unknown Rx traMADoL [Ultram] 50 mg PO Q6HR PRN #12 tablet 10/24/19 Unknown Rx Allergies Allergy/AdvReac Type Severity Reaction Status Date / Time sulfamethoxazole Allergy Hives Verified 10/24/19 10:35 [From Bactrim] trimethoprim [From Bactrim] Allergy Hives Verified 10/24/19 10:35 ED Review of Systems ROS: Stated complaint: FALL INJURY/LT SHOULDER Other details as noted in HPI Comment: All other systems reviewed and negative ED Past Medical Hx - Past Medical History Previous Medical History?: Yes Hx Hypertension: Yes Hx CVA: No Hx Heart Attack/AMI: No Hx Congestive Heart Failure: No Hx Diabetes: No Hx Deep Vein Thrombosis: No Hx Pulmonary Embolism: No Hx GERD: No Hx Liver Disease: No Hx Renal Disease: No Hx Sickle Cell Disease: No Hx Arthritis: No Hx Headaches / Migraines: No Hx Seizures: No Hx Kidney Stones: No Hx Psychiatric Treatment: Yes (opiate dependence, depression) Hx Asthma: No Hx COPD: No Hx Tuberculosis: No Hx Dementia: No Hx HIV: No Additional medical history: kidney stones. shoulder dislocation - Surgical History Past Surgical History?: Yes Hx Coronary Stent: No Hx Open Heart Surgery: No Hx Pacemaker: No Hx Internal Defibrillator: No Hx Cholecystectomy: No Hx Appendectomy: No Hx Breast Surgery: No Additional Surgical History: tonsillectomy - Social History Smoking Status: Current Some Day Smoker Substance Use Type: None - Medications Home Medications: Home Medications Medication Instructions Recorded Confirmed Last Taken Type Lisinopril [Zestril TAB] 20 mg PO QDAY #30 tablet 05/02/19 07/05/19 Unknown Rx Ciprofloxacin HCl [Ciprofloxacin 500 mg PO Q12HR #20 tab 08/17/19 Unknown Rx TAB] Ketorolac [Toradol] 10 mg PO Q8H PRN #20 tablet 08/17/19 Unknown Rx Ondansetron [Zofran Odt] 4 mg PO Q6HR PRN #20 tab.rapdis 08/17/19 Unknown Rx Tamsulosin [Flomax] 0.4 mg PO QDAY #7 cap 08/17/19 Unknown Rx oxyCODONE /ACETAMINOPHEN [Percocet 1 tab PO Q6HR PRN #10 tablet 08/17/19 Unknown Rx 5/325] Ibuprofen [Motrin 800 MG tab] 800 mg PO Q8HR PRN #10 tablet 10/24/19 Unknown Rx methOCARBAMOL [Robaxin TAB] 500 mg PO Q6H PRN #14 tablet 10/24/19 Unknown Rx traMADoL [Ultram] 50 mg PO Q6HR PRN #12 tablet 10/24/19 Unknown Rx ED Physical Exam - General Limitations: No Limitations General appearance: alert, in no apparent distress - Head Head exam: Present: atraumatic, normocephalic - Eye Eye exam: Present: normal appearance, PERRL, EOMI - ENT ENT exam: Present: mucous membranes moist - Neck Neck exam: Present: normal inspection - Respiratory Respiratory exam: Absent: respiratory distress - Cardiovascular Cardiovascular Exam: Present: regular rate, normal rhythm - GI/Abdominal GI/Abdominal exam: Present: soft - Rectal Rectal exam: Present: deferred - Extremities Exam Extremities exam: Present: normal inspection - Expanded Upper Extremity Exam Left Shoulder Exam: Present: tenderness over AC joint. Absent: full ROM, swelling, abrasion, deformity, dislocation Upper Arm exam: Present: normal inspection, full ROM Elbow exam: Present: normal inspection, full ROM Forearm Wrist exam: Present: normal inspection, full ROM - Back Exam Back exam: Present: normal inspection - Neurological Exam Neurological exam: Present: alert, oriented X3 - Psychiatric Psychiatric exam: Present: normal affect, normal mood - Skin Skin exam: Present: warm, dry, intact, normal color. Absent: rash ED Course Vital Signs 10/24/19 10:33 Temperature 98.3 F Pulse Rate 87 Respiratory 16 Rate Blood Pressure 149/109 O2 Sat by Pulse 98 Oximetry ED Medical Decision Making - Radiology Data Patient: BRANDT MINER MR#: [id number] : 1975 Acct:[id number] Age/Sex: 44 / M ADM Date: 10/24/19 Loc: ED Attending Dr: Ordering Physician: DONN GAUTAM Date of Service: 10/24/19 Procedure(s): XR shoulder 2+V LT Accession Number(s): [id number] cc: DONN GAUTAM Fluoro Time In Minutes: Left shoulder 3 views INDICATION: Left shoulder pain. IMPRESSION: No fracture or subluxation of the left shoulder is identified. Signer Name: Abraham Han MD Signed: 10/24/2019 11:04 AM Workstation Name: [employer] Transcribed By: Dictated By: Abraham Han MD - Medical Decision Making Patient is a 44-year-old male who suffered a fall prior to arrival. Patient clinically has pain over the before meals joint and his x-ray does show slight widening of the before meals joint. Patient likely with before meals sprain however before meals tear could not be ruled out at this time. Patient be placed on a sling and given medication for symptomatically relief and be followed up with orthopedics. Critical care attestation.: If time is entered above; I have spent that time in minutes in the direct care of this critically ill patient, excluding procedure time. ED Disposition Clinical Impression: AC joint derangement Disposition: DC-01 TO HOME OR SELFCARE Is pt being admited?: No Does the pt Need Aspirin: No Condition: Stable Instructions: Acromioclavicular Separation (ED), RICE Therapy (ED) Referrals: ASHLEY MILTON MD [Staff Physician] - 3-5 Days Time of Disposition: 11:32
[2019-10-24 11:47] VITALS: BP 140/100
== END 2019-10-24 11:32 | disposition home or self-care (01) ==
LOC: ED 10:25
DX: M24.9 Joint derangement, unspecified (principal); M25.512 Pain in left shoulder; I10 Essential (primary) hypertension; F32.9 Major depressive disorder, single episode, unspecified; F17.200 Nicotine dependence, unspecified, uncomplicated; Z88.2 Allergy status to sulfonamides; Z90.89 Acquired absence of other organs
CPT/HCPCS: 73030; 96372; 99283; J1885

== ENCOUNTER 2019-12-04 10:13 | Emergency (ER) | payer OTHER ==
[2019-12-04 10:39] VITALS: BP 143/109
--- NOTE | 2019-12-04 11:05 | XRay Report ---
LEFT SHOULDER 3 VIEWS INDICATION / CLINICAL INFORMATION: Fall this morning with left shoulder pain. COMPARISON: 10/24/2019. FINDINGS: BONES / JOINT(S): There are [id number] degenerative changes involving the acromioclavicular cherelle nt and greater tuberosity of the humerus. There is no evidence of fracture or dislocation. SOFT TISSUES: No significant abnormality. ADDITIONAL FINDINGS: The visualized portions of the left lung is clear. IMPRESSION: Osteoarthritis without acute abnormality or significant change. Signer Name: Enoch Acosta MD Signed: 12/04/2019 11:01 AM Workstation Name: [email or web address]
== END 2019-12-04 12:00 | disposition left against medical advice (07) ==
LOC: ED 10:13
DX: M25.512 Pain in left shoulder (principal); Z53.21 Procedure and treatment not carried out due to patient leaving prior to being seen by health care provider

== ENCOUNTER 2020-11-05 20:11 | Emergency (ER) | payer SELFPAY ==
[2020-11-06 00:28] VITALS: BP 146/94
--- NOTE | 2020-11-06 10:29 | Emergency Department Report ---
ED Extremity Problem HPI - General Chief complaint: Extremity Injury, Lower Stated complaint: GOUT RIGHT FOOT Time Seen by Provider: 11/06/20 10:23 Source: patient Mode of arrival: Ambulatory Limitations: No Limitations - History of Present Illness Initial comments: Patient is a 45-year-old male presents emergency room with complaints of acute gout flare that began yesterday. He states that his flare is in his right foot and right big toe. He states he last had a flare a few months ago. He states he attempts to follow the diet for gout but is not completely compliant. He is not on any chronic gout medication. He denies any fall or injury. He denies any numbness or weakness. He states it feels like a burning pain. He denies any fever, chills, vomiting, diarrhea. Past medical history of hypertension. Allergy to Bactrim. - Related Data Previous Rx's Medication Instructions Recorded Last Taken Type lisinopriL [Zestril TAB] 20 mg PO QDAY #30 tablet 05/02/19 Unknown Rx Ciprofloxacin HCl [Ciprofloxacin 500 mg PO Q12HR #20 tab 08/17/19 Unknown Rx TAB] Ketorolac [Toradol] 10 mg PO Q8H PRN #20 tablet 08/17/19 Unknown Rx Ondansetron [Zofran Odt] 4 mg PO Q6HR PRN #20 tab.rapdis 08/17/19 Unknown Rx Tamsulosin [Flomax] 0.4 mg PO QDAY #7 cap 08/17/19 Unknown Rx oxyCODONE /ACETAMINOPHEN [Percocet 1 tab PO Q6HR PRN #10 tablet 08/17/19 Unknown Rx 5/325] Ibuprofen [Motrin 800 MG tab] 800 mg PO Q8HR PRN #10 tablet 10/24/19 Unknown Rx methOCARBAMOL [Robaxin TAB] 500 mg PO Q6H PRN #14 tablet 10/24/19 Unknown Rx traMADoL [Ultram] 50 mg PO Q6HR PRN #12 tablet 10/24/19 Unknown Rx Acetaminophen/Codeine [Tylenol 1 tab PO Q6H PRN #10 tab 05/30/20 Unknown Rx /Codeine # 3 tab] Ketorolac [Toradol] 10 mg PO Q6H PRN #14 tablet 05/30/20 Unknown Rx Colchicine 0.6 mg PO DAILY 1 Days #3 capsule 11/06/20 Unknown Rx Indomethacin 50 mg PO Q8H #21 capsule 11/06/20 Unknown Rx Prednisone [predniSONE 10 mg 10 mg PO .TAPER #1 tab.ds.pk 11/06/20 Unknown Rx (6-Day Pack, 21 Tabs)] traMADoL [Ultram 50 MG tab] 50 mg PO Q6HR PRN #10 tablet 11/06/20 Unknown Rx Allergies Allergy/AdvReac Type Severity Reaction Status Date / Time sulfamethoxazole Allergy Hives Verified 10/24/19 10:35 [From Bactrim] trimethoprim [From Bactrim] Allergy Hives Verified 10/24/19 10:35 ED Review of Systems ROS: Stated complaint: GOUT RIGHT FOOT Other details as noted in HPI Comment: All other systems reviewed and negative ED Past Medical Hx - Past Medical History Previous Medical History?: Yes Hx Hypertension: Yes Hx CVA: No Hx Heart Attack/AMI: No Hx Congestive Heart Failure: No Hx Diabetes: No Hx Deep Vein Thrombosis: No Hx Pulmonary Embolism: No Hx GERD: No Hx Liver Disease: No Hx Renal Disease: No Hx Sickle Cell Disease: No Hx Arthritis: No Hx Headaches / Migraines: No Hx Seizures: No Hx Kidney Stones: No Hx Psychiatric Treatment: Yes (opiate dependence, depression) Hx Asthma: No Hx COPD: No Hx Tuberculosis: No Hx Dementia: No Hx HIV: No Additional medical history: kidney stones, GOUT. shoulder dislocation - Surgical History Past Surgical History?: Yes Hx Coronary Stent: No Hx Open Heart Surgery: No Hx Pacemaker: No Hx Internal Defibrillator: No Hx Cholecystectomy: No Hx Appendectomy: No Hx Breast Surgery: No Additional Surgical History: tonsillectomy - Social History Smoking Status: Current Every Day Smoker Substance Use Type: None - Medications Home Medications: Home Medications Medication Instructions Recorded Confirmed Last Taken Type lisinopriL [Zestril TAB] 20 mg PO QDAY #30 tablet 05/02/19 07/05/19 Unknown Rx Ciprofloxacin HCl [Ciprofloxacin 500 mg PO Q12HR #20 tab 08/17/19 Unknown Rx TAB] Ketorolac [Toradol] 10 mg PO Q8H PRN #20 tablet 08/17/19 Unknown Rx Ondansetron [Zofran Odt] 4 mg PO Q6HR PRN #20 tab.rapdis 08/17/19 Unknown Rx Tamsulosin [Flomax] 0.4 mg PO QDAY #7 cap 08/17/19 Unknown Rx oxyCODONE /ACETAMINOPHEN [Percocet 1 tab PO Q6HR PRN #10 tablet 08/17/19 Unknown Rx 5/325] Ibuprofen [Motrin 800 MG tab] 800 mg PO Q8HR PRN #10 tablet 10/24/19 Unknown Rx methOCARBAMOL [Robaxin TAB] 500 mg PO Q6H PRN #14 tablet 10/24/19 Unknown Rx traMADoL [Ultram] 50 mg PO Q6HR PRN #12 tablet 10/24/19 Unknown Rx Acetaminophen/Codeine [Tylenol 1 tab PO Q6H PRN #10 tab 05/30/20 Unknown Rx /Codeine # 3 tab] Ketorolac [Toradol] 10 mg PO Q6H PRN #14 tablet 05/30/20 Unknown Rx Colchicine 0.6 mg PO DAILY 1 Days #3 capsule 11/06/20 Unknown Rx Indomethacin 50 mg PO Q8H #21 capsule 11/06/20 Unknown Rx Prednisone [predniSONE 10 mg 10 mg PO .TAPER #1 tab.ds.pk 11/06/20 Unknown Rx (6-Day Pack, 21 Tabs)] traMADoL [Ultram 50 MG tab] 50 mg PO Q6HR PRN #10 tablet 11/06/20 Unknown Rx ED Physical Exam - General Limitations: No Limitations General appearance: alert, in no apparent distress - Head Head exam: Present: atraumatic, normocephalic - Eye Eye exam: Present: normal appearance - ENT ENT exam: Present: mucous membranes moist - Respiratory Respiratory exam: Absent: respiratory distress, accessory muscle use - Extremities Exam Extremities exam: Present: other (ttp and edema present to the right big toe and right dorsal foot, mild erythema, FROM of the toes and foot and ankle, neurovascularly intact) - Neurological Exam Neurological exam: Present: alert, oriented X3 - Psychiatric Psychiatric exam: Present: normal affect, normal mood - Skin Skin exam: Present: warm, dry, intact ED Course Vital Signs 11/06/20 00:11 Temperature 97.3 F L Pulse Rate 82 Respiratory 18 Rate Blood Pressure 146/94 O2 Sat by Pulse 98 Oximetry ED Medical Decision Making - Medical Decision Making Patient is a 45-year-old male presents emergency room with complaints of acute gout flare that began yesterday. He states that his flare is in his right foot and right big toe. He states he last had a flare a few months ago. He states he attempts to follow the diet for gout but is not completely compliant. He is not on any chronic gout medication. He denies any fall or injury. He denies any numbness or weakness. He states it feels like a burning pain. He denies any fever, chills, vomiting, diarrhea. Past medical history of hypertension. Allergy to Bactrim. vss. on exam: ttp and edema present to the right big toe and right dorsal foot, mild erythema, FROM of the toes and foot and ankle, neurovascularly intact. Examination appears consistent with acute gout flare. No signs of septic joint at this time. Patient has had no traumatic injury. Given prescription for tramadol, indomethacin, prednisone, colchicine. Advised patient Please take medication as prescribed. Do not drive or operate heavy machinery while taking pain medication. Follow-up with a primary care doctor and discuss a chronic gout medication. Please follow the diet for gout. Return to emergency room for any new or worsening symptoms. - Differential Diagnosis Gout, osteoarthritis, rheumatoid arthritis, strain, sprain, septic joint Critical care attestation.: If time is entered above; I have spent that time in minutes in the direct care of this critically ill patient, excluding procedure time. ED Disposition Clinical Impression: Acute gout Qualifiers: Gout site: foot Gout etiology: unspecified cause Laterality: right Qualified Code(s): M10.9 - Gout, unspecified Disposition: TO HOME OR SELFCARE Is pt being admited?: No Does the pt Need Aspirin: No Condition: Stable Instructions: Low-Purine Eating Plan Additional Instructions: Please take medication as prescribed. Do not drive or operate heavy machinery while taking pain medication. Follow-up with a primary care doctor and discuss a chronic gout medication. Please follow the diet for gout. Return to emergency room for any new or worsening symptoms. Prescriptions: Colchicine 0.6 mg PO DAILY 1 Days #3 capsule Indomethacin 50 mg PO Q8H #21 capsule Prednisone [predniSONE 10 mg (6-Day Pack, 21 Tabs)] 10 mg PO .TAPER #1 tab.ds.pk traMADoL [Ultram 50 MG tab] 50 mg PO Q6HR PRN #10 tablet PRN Reason: Pain , Severe (7-10) Referrals: PRIMARY CARE, [Primary Care Provider] - 2-3 Days Time of Disposition: 10:27 Print Language: TONGAN
== END 2020-11-06 10:40 | disposition home or self-care (01) ==
LOC: ED 20:11
DX: M10.9 Gout, unspecified (principal); I10 Essential (primary) hypertension; F32.9 Major depressive disorder, single episode, unspecified; Z79.899 Other long term (current) drug therapy; Z88.2 Allergy status to sulfonamides; Z88.8 Allergy status to other drugs, medicaments and biological substances
CPT/HCPCS: 99282

== ENCOUNTER 2020-11-06 18:04 | Emergency (ER) | payer SELFPAY ==
[2020-11-06 20:03] VITALS: BP 125/84
--- NOTE | 2020-11-06 20:44 | Emergency Department Report ---
Chief Complaint: Extremity Injury, Lower Stated Complaint: RIGHT FOOT PAIN GOUT - HPI History of Present Illness: The patient was evaluated in the emergency department for symptoms described in the history of present illness. He/she was evaluated in the context of the global COVID-19 pandemic, which necessitated consideration that the patient might be at risk for infection with the virus that causes COVID-19. Institutional protocols and algorithms that pertain to the evaluation of patients at risk for COVID-19 are in a state of rapid change based on information released by regulatory bodies including the CDC and federal and state organizations. These policies and algorithms were followed during the patient's care in the emergency department. Please note that these policies, procedures and recommendations changed on a rapid basis. 45-year-old male presents to the emergency room that was just discharged at 501 for right foot gout pain. Patient states that the medicines is not working. - Exam Vital Signs: Vital Signs 11/06/20 19:53 Temperature 98.1 F Pulse Rate 87 Respiratory 16 Rate Blood Pressure 125/84 O2 Sat by Pulse 97 Oximetry Physical Exam: Patient is alert and oriented x3 no acute distress nontoxic in appearance Patient is ambulatory. MSE screening note: Focused history and physical exam performed. Due to findings the following was ordered: 45-year-old male presents to the emergency room that was just discharged at 501 for right foot gout pain. Patient states that the medicines is not working. Discussed with patient he needs to take his medication or not given him any other narcotics. ED Disposition for MSE Clinical Impression: Acute gout Disposition: Z-07 MED SCREENING EXAM-LEFT Is pt being admited?: No Does the pt Need Aspirin: No Condition: Stable Referrals: PRIMARY CARE, [Primary Care Provider] - 3-5 Days
== END 2020-11-06 21:20 | disposition left against medical advice (07) ==
LOC: ED 18:04
DX: M25.571 Pain in right ankle and joints of right foot (principal); Z53.21 Procedure and treatment not carried out due to patient leaving prior to being seen by health care provider

== ENCOUNTER 2020-11-10 15:32 | Emergency (ER) | payer SELFPAY ==
[2020-11-10 16:25] VITALS: BP 154/103
--- NOTE | 2020-11-10 16:27 | Emergency Department Report ---
ED ENT HPI - General Chief complaint: Dental/Oral Stated complaint: TOOTHACHE Time Seen by Provider: 11/10/20 15:42 Source: patient Mode of arrival: Ambulatory Limitations: No Limitations - History of Present Illness Initial comments: This is a 45-year-old male nontoxic well in appearance with no signs of distress presents to the ED with complaint of toothache. Patient denies any facial swelling. Denies following up with a dentist. Denies any fever, chills, headache, nausea, vomiting, chest pain or SOB. Denies any other complaints. Denies any allergies. MD complaint: tooth pain -: days(s) Location: tooth # 1 - pain here Severity: mild Severity scale (0 -10): 8 Quality: aching Consistency: constant Improves with: none Worsens with: none Associated Symptoms: gum swelling, toothache. denies: fever, cough, pain with swallowing, sore throat, tinnitus, hearing loss, discharge from ear, rhinorrhea - Related Data Previous Rx's Medication Instructions Recorded Last Taken Type lisinopriL [Zestril TAB] 20 mg PO QDAY #30 tablet 05/02/19 Unknown Rx Ciprofloxacin HCl [Ciprofloxacin 500 mg PO Q12HR #20 tab 08/17/19 Unknown Rx TAB] Ketorolac [Toradol] 10 mg PO Q8H PRN #20 tablet 08/17/19 Unknown Rx Ondansetron [Zofran Odt] 4 mg PO Q6HR PRN #20 tab.rapdis 08/17/19 Unknown Rx Tamsulosin [Flomax] 0.4 mg PO QDAY #7 cap 08/17/19 Unknown Rx oxyCODONE /ACETAMINOPHEN [Percocet 1 tab PO Q6HR PRN #10 tablet 08/17/19 Unknown Rx 5/325] Ibuprofen [Motrin 800 MG tab] 800 mg PO Q8HR PRN #10 tablet 10/24/19 Unknown Rx methOCARBAMOL [Robaxin TAB] 500 mg PO Q6H PRN #14 tablet 10/24/19 Unknown Rx traMADoL [Ultram] 50 mg PO Q6HR PRN #12 tablet 10/24/19 Unknown Rx Acetaminophen/Codeine [Tylenol 1 tab PO Q6H PRN #10 tab 05/30/20 Unknown Rx /Codeine # 3 tab] Ketorolac [Toradol] 10 mg PO Q6H PRN #14 tablet 05/30/20 Unknown Rx Colchicine 0.6 mg PO DAILY 1 Days #3 capsule 11/06/20 Unknown Rx Indomethacin 50 mg PO Q8H #21 capsule 11/06/20 Unknown Rx Prednisone [predniSONE 10 mg 10 mg PO .TAPER #1 tab.ds.pk 11/06/20 Unknown Rx (6-Day Pack, 21 Tabs)] traMADoL [Ultram 50 MG tab] 50 mg PO Q6HR PRN #10 tablet 11/06/20 Unknown Rx Amoxicillin/K Clav Tab [Augmentin 1 tab PO Q12HR #20 tab 11/10/20 Unknown Rx 875 mg] Chlorhexidine Mouthwash [Peridex] 15 ml MM BID #1 bottle 11/10/20 Unknown Rx Ibuprofen [Motrin] 600 mg PO Q8H PRN #20 tablet 11/10/20 Unknown Rx Allergies Allergy/AdvReac Type Severity Reaction Status Date / Time sulfamethoxazole Allergy Hives Verified 10/24/19 10:35 [From Bactrim] trimethoprim [From Bactrim] Allergy Hives Verified 10/24/19 10:35 ED Dental HPI - General Chief complaint: Dental/Oral Stated complaint: TOOTHACHE Time Seen by Provider: 11/10/20 15:42 Source: patient Mode of arrival: Ambulatory Limitations: No Limitations - Related Data Previous Rx's Medication Instructions Recorded Last Taken Type lisinopriL [Zestril TAB] 20 mg PO QDAY #30 tablet 05/02/19 Unknown Rx Ciprofloxacin HCl [Ciprofloxacin 500 mg PO Q12HR #20 tab 08/17/19 Unknown Rx TAB] Ketorolac [Toradol] 10 mg PO Q8H PRN #20 tablet 08/17/19 Unknown Rx Ondansetron [Zofran Odt] 4 mg PO Q6HR PRN #20 tab.rapdis 08/17/19 Unknown Rx Tamsulosin [Flomax] 0.4 mg PO QDAY #7 cap 08/17/19 Unknown Rx oxyCODONE /ACETAMINOPHEN [Percocet 1 tab PO Q6HR PRN #10 tablet 08/17/19 Unknown Rx 5/325] Ibuprofen [Motrin 800 MG tab] 800 mg PO Q8HR PRN #10 tablet 10/24/19 Unknown Rx methOCARBAMOL [Robaxin TAB] 500 mg PO Q6H PRN #14 tablet 10/24/19 Unknown Rx traMADoL [Ultram] 50 mg PO Q6HR PRN #12 tablet 10/24/19 Unknown Rx Acetaminophen/Codeine [Tylenol 1 tab PO Q6H PRN #10 tab 05/30/20 Unknown Rx /Codeine # 3 tab] Ketorolac [Toradol] 10 mg PO Q6H PRN #14 tablet 05/30/20 Unknown Rx Colchicine 0.6 mg PO DAILY 1 Days #3 capsule 11/06/20 Unknown Rx Indomethacin 50 mg PO Q8H #21 capsule 11/06/20 Unknown Rx Prednisone [predniSONE 10 mg 10 mg PO .TAPER #1 tab.ds.pk 11/06/20 Unknown Rx (6-Day Pack, 21 Tabs)] traMADoL [Ultram 50 MG tab] 50 mg PO Q6HR PRN #10 tablet 11/06/20 Unknown Rx Amoxicillin/K Clav Tab [Augmentin 1 tab PO Q12HR #20 tab 11/10/20 Unknown Rx 875 mg] Chlorhexidine Mouthwash [Peridex] 15 ml MM BID #1 bottle 11/10/20 Unknown Rx Ibuprofen [Motrin] 600 mg PO Q8H PRN #20 tablet 11/10/20 Unknown Rx Allergies Allergy/AdvReac Type Severity Reaction Status Date / Time sulfamethoxazole Allergy Hives Verified 10/24/19 10:35 [From Bactrim] trimethoprim [From Bactrim] Allergy Hives Verified 10/24/19 10:35 ED Review of Systems ROS: Stated complaint: TOOTHACHE Other details as noted in HPI Comment: All other systems reviewed and negative Constitutional: denies: chills, fever Eyes: denies: eye pain, eye discharge, vision change ENT: dental pain. denies: ear pain, throat pain Respiratory: denies: cough, shortness of breath, wheezing Cardiovascular: denies: chest pain, palpitations Endocrine: no symptoms reported Gastrointestinal: denies: abdominal pain, nausea, diarrhea Genitourinary: denies: urgency, dysuria Musculoskeletal: denies: back pain, joint swelling, arthralgia Skin: denies: rash, lesions Neurological: denies: headache, weakness, paresthesias Psychiatric: denies: anxiety, depression Hematological/Lymphatic: denies: easy bleeding, easy bruising ED Past Medical Hx - Past Medical History Previous Medical History?: Yes Hx Hypertension: Yes Hx CVA: No Hx Heart Attack/AMI: No Hx Congestive Heart Failure: No Hx Diabetes: No Hx Deep Vein Thrombosis: No Hx Pulmonary Embolism: No Hx GERD: No Hx Liver Disease: No Hx Renal Disease: No Hx Sickle Cell Disease: No Hx Arthritis: No Hx Headaches / Migraines: No Hx Seizures: No Hx Kidney Stones: No Hx Psychiatric Treatment: Yes (opiate dependence, depression) Hx Asthma: No Hx COPD: No Hx Tuberculosis: No Hx Dementia: No Hx HIV: No Additional medical history: kidney stones, GOUT. shoulder dislocation - Surgical History Hx Coronary Stent: No Hx Open Heart Surgery: No Hx Pacemaker: No Hx Internal Defibrillator: No Hx Cholecystectomy: No Hx Appendectomy: No Hx Breast Surgery: No Additional Surgical History: tonsillectomy - Social History Smoking Status: Never Smoker Substance Use Type: None - Medications Home Medications: Home Medications Medication Instructions Recorded Confirmed Last Taken Type lisinopriL [Zestril TAB] 20 mg PO QDAY #30 tablet 05/02/19 07/05/19 Unknown Rx Ciprofloxacin HCl [Ciprofloxacin 500 mg PO Q12HR #20 tab 08/17/19 Unknown Rx TAB] Ketorolac [Toradol] 10 mg PO Q8H PRN #20 tablet 08/17/19 Unknown Rx Ondansetron [Zofran Odt] 4 mg PO Q6HR PRN #20 tab.rapdis 08/17/19 Unknown Rx Tamsulosin [Flomax] 0.4 mg PO QDAY #7 cap 08/17/19 Unknown Rx oxyCODONE /ACETAMINOPHEN [Percocet 1 tab PO Q6HR PRN #10 tablet 08/17/19 Unknown Rx 5/325] Ibuprofen [Motrin 800 MG tab] 800 mg PO Q8HR PRN #10 tablet 10/24/19 Unknown Rx methOCARBAMOL [Robaxin TAB] 500 mg PO Q6H PRN #14 tablet 10/24/19 Unknown Rx traMADoL [Ultram] 50 mg PO Q6HR PRN #12 tablet 10/24/19 Unknown Rx Acetaminophen/Codeine [Tylenol 1 tab PO Q6H PRN #10 tab 05/30/20 Unknown Rx /Codeine # 3 tab] Ketorolac [Toradol] 10 mg PO Q6H PRN #14 tablet 05/30/20 Unknown Rx Colchicine 0.6 mg PO DAILY 1 Days #3 capsule 11/06/20 Unknown Rx Indomethacin 50 mg PO Q8H #21 capsule 11/06/20 Unknown Rx Prednisone [predniSONE 10 mg 10 mg PO .TAPER #1 tab.ds.pk 11/06/20 Unknown Rx (6-Day Pack, 21 Tabs)] traMADoL [Ultram 50 MG tab] 50 mg PO Q6HR PRN #10 tablet 11/06/20 Unknown Rx Amoxicillin/K Clav Tab [Augmentin 1 tab PO Q12HR #20 tab 11/10/20 Unknown Rx 875 mg] Chlorhexidine Mouthwash [Peridex] 15 ml MM BID #1 bottle 11/10/20 Unknown Rx Ibuprofen [Motrin] 600 mg PO Q8H PRN #20 tablet 11/10/20 Unknown Rx ED Physical Exam - General Limitations: No Limitations General appearance: alert, in no apparent distress - Head Head exam: Present: atraumatic, normocephalic - Eye Eye exam: Present: normal appearance - Expanded ENT Exam Expanded Ear exam: Present: normal external inspection Mouth exam: Present: normal external inspection, tongue normal. Absent: drooling, trismus, muffled voice Teeth exam: Present: dental caries, fractured tooth #, dental tenderness #, gingival enlargement, other (no facial swelling.) Throat exam: Positive: normal inspection, other (uvula midline). Negative: tonsillar erythema, tonsillomegaly, tonsillar exudate, R peritonsillar mass, L peritonsillar mass - Neck Neck exam: Present: normal inspection, full ROM. Absent: tenderness, meningismus, lymphadenopathy - Respiratory Respiratory exam: Absent: respiratory distress - Cardiovascular Cardiovascular Exam: Present: regular rate, normal rhythm, normal heart sounds - Extremities Exam Extremities exam: Present: normal inspection, full ROM - Back Exam Back exam: Present: normal inspection, full ROM - Neurological Exam Neurological exam: Present: alert, oriented X3, normal gait - Psychiatric Psychiatric exam: Present: normal affect, normal mood - Skin Skin exam: Present: warm, dry, intact, normal color. Absent: rash ED Course Vital Signs 11/10/20 15:41 Temperature 97.3 F L Pulse Rate 88 Respiratory 18 Rate Blood Pressure 154/103 O2 Sat by Pulse 94 Oximetry - Reevaluation(s) Reevaluation #1: 11/10/20 16:25 Patient is speaking in full sentences with no signs of distress noted. ED Medical Decision Making - Medical Decision Making Patient was instructed to Follow-up with a primary care doctor in 3-5 days or if symptoms worsen and continue return to emergency room as soon as possible. At time of discharge, the patient does not seem toxic or ill in appearance. No acute signs of distress noted. Patient agrees to discharge treatment plan of care. No further questions noted by the patient. Critical care attestation.: If time is entered above; I have spent that time in minutes in the direct care of this critically ill patient, excluding procedure time. ED Disposition Clinical Impression: Dental caries, Gingivitis Disposition: TO HOME OR SELFCARE Is pt being admited?: No Does the pt Need Aspirin: No Condition: Stable Additional Instructions: Follow-up with a dentist doctor in 3-5 days or if symptoms worsen and continue return to emergency room as soon as possible. Prescriptions: Amoxicillin/K Clav Tab [Augmentin 875 mg] 1 tab PO Q12HR #20 tab Ibuprofen [Motrin] 600 mg PO Q8H PRN #20 tablet PRN Reason: Pain Chlorhexidine Mouthwash [Peridex] 15 ml MM BID #1 bottle Referrals: PRIMARY CAREMD [Referring] - 3-5 Days ANGELINE GONZALES MD [Staff Physician] - 3-5 Days [facility] [Outside] - 3-5 Days Forms: Work/School Release Form(ED) Time of Disposition: 16:31
== END 2020-11-10 17:38 | disposition home or self-care (01) ==
LOC: ED 15:32
DX: K05.10 Chronic gingivitis, plaque induced (principal); K02.9 Dental caries, unspecified; I10 Essential (primary) hypertension; Z79.899 Other long term (current) drug therapy; Z88.2 Allergy status to sulfonamides; Z88.8 Allergy status to other drugs, medicaments and biological substances; Z90.49 Acquired absence of other specified parts of digestive tract
CPT/HCPCS: 99282

== ENCOUNTER 2020-11-12 21:48 | Emergency (ER) | payer SELFPAY ==
[2020-11-12] MEDS ORDERED: ONDANSETRON 4 MG ODT TAB PO ONE (22:00)
--- NOTE | 2020-11-12 22:00 | Emergency Department Report ---
Blank Doc - Documentation Documentation: 45-year-old male tobacco utilized and cannabis usually reports last month and on yesterday and reports he did he woke this morning complaining of nausea and and vomiting with cramping to the upper abdomen of unknown etiology reports no hemoptysis no hematemesis hematochezia no fevers, chills, sweats no chest pain or palpitations no traumatic injuries. This initial assessment/diagnostic orders/clinical plan/treatment(s) is/are subject to change based on patients health status, clinical progression and re- assessment by fellow clinical providers in the ED. Further treatment and workup at subsequent clinical providers discretion. Patient/guardian urged not to elope from the ED as their condition may be serious if not clinically assessed and managed. Initial orders include: Labs, entire antiemetics
[2020-11-12 22:01] VITALS: BP 139/83
[2020-11-12 23:05] LABS: Basophils # (Auto) 0.1 K/mm3 (0.0-0.1); Basophils % (Auto) 0.6 % (0.0-1.8); Eosinophils # (Auto) 0.1 K/mm3 (0.0-0.4); Hematocrit 39.6 % (35.5-45.6); Hemoglobin 13.8 gm/dl (11.8-15.2); Lymphocytes # (Auto) 3.3 K/mm3 (1.2-5.4); Lymphocytes % (Auto) 32.7 % (13.4-35.0); Mean Corpuscular HGB Conc 35 % (32-34); Mean Corpuscular Volume 89 fl (84-94); Monocytes # (Auto) 0.7 K/mm3 (0.0-0.8); Monocytes % (Auto) 6.7 % (0.0-7.3); Platelet Count 221 K/mm3 (140-440); Red Blood Count 4.44 M/mm3 (3.65-5.03); Red Cell Distribution Width 14.4 % (13.2-15.2)
[2020-11-12 23:34] LABS: Alanine Aminotransferase 12 units/L (7-56); Albumin 4.3 g/dL (3.9-5); BUN/Creatinine Ratio 23; Blood Urea Nitrogen 21 mg/dL (9-20); Calcium 9.2 mg/dL (8.4-10.2); Hemolysis Index 5
[2020-11-13] MEDS ORDERED: LOPERAMIDE 2 MG CAP PO ONE (00:05)
--- NOTE | 2020-11-13 00:05 | Emergency Department Report ---
ED General Adult HPI - General Chief complaint: Nausea/Vomiting/Diarrhea Stated complaint: VOMITING/DIARRHEA STEFFI PUI?: No Time Seen by Provider: 11/12/20 23:45 Source: patient, RN notes reviewed, old records reviewed Mode of arrival: Ambulatory Limitations: No Limitations - History of Present Illness Initial comments: The patient was evaluated in the emergency department for symptoms described in the history of present illness. He/she was evaluated in the context of the global COVID-19 pandemic, which necessitated consideration that the patient might be at risk for infection with the virus that causes COVID-19. Instit utional protocols and algorithms that pertain to the evaluation of patients at risk for COVID-19 are in a state of rapid change based on information released by regulatory bodies including the CDC and federal and state organizations. These policies and algorithms were followed during the patient's care in the emergency department. Please note that these policies, procedures and recommendations changed on a rapid basis. Patient is a 45-year-old gentleman. Patient presents to the ER today with a complaint of painless nausea, vomiting, and diarrhea. Symptoms have been present for approximately 24 hours. Patient recently started Augmentin for dental caries, prescribed at this facility a few days ago. He has taken some Augmentin doses, but has been inconsistent with routinely taking this medication. He denies headache, neck pain, chest pain, abdominal pain, shortness of breath. He denies testicular pain, urinary symptoms, loss of taste and loss of smell. Emesis is clear and bilious. Diarrhea is green and brown. No recent travel, or exposure to sick contacts. Patient also drinking a Pepsi/soda in the waiting room and during my history and physical examination. -: hour(s) Consistency: intermittent Improves with: none Worsens with: none Associated Symptoms: denies other symptoms - Related Data Previous Rx's Medication Instructions Recorded Last Taken Type lisinopriL [Zestril TAB] 20 mg PO QDAY #30 tablet 05/02/19 Unknown Rx Ketorolac [Toradol] 10 mg PO Q8H PRN #20 tablet 08/17/19 Unknown Rx Ibuprofen [Motrin 800 MG tab] 800 mg PO Q8HR PRN #10 tablet 10/24/19 Unknown Rx Ketorolac [Toradol] 10 mg PO Q6H PRN #14 tablet 05/30/20 Unknown Rx Colchicine 0.6 mg PO DAILY 1 Days #3 capsule 11/06/20 Unknown Rx Indomethacin 50 mg PO Q8H #21 capsule 11/06/20 Unknown Rx Ibuprofen [Motrin] 600 mg PO Q8H PRN #20 tablet 11/10/20 Unknown Rx Chlorhexidine Mouthwash [Peridex] 15 ml MM BID #1 bottle 11/13/20 Unknown Rx Ninoska Root [Ninoska] 250 mg PO QID PRN #30 capsule 11/13/20 Unknown Rx Loperamide [Imodium] 2 mg PO Q2HR PRN #30 capsule 11/13/20 Unknown Rx Ondansetron [Zofran ODT TAB] 4 mg PO Q6HR PRN #20 tab.rapdis 11/13/20 Unknown Rx Allergies Allergy/AdvReac Type Severity Reaction Status Date / Time sulfamethoxazole Allergy Hives Verified 10/24/19 10:35 [From Bactrim] trimethoprim [From Bactrim] Allergy Hives Verified 10/24/19 10:35 ED Review of Systems ROS: Stated complaint: VOMITING/DIARRHEA STEFFI Other details as noted in HPI Constitutional: denies: fever Eyes: denies: eye discharge ENT: dental pain, other (Chronic dental caries). denies: congestion Respiratory: denies: cough Cardiovascular: denies: chest pain Gastrointestinal: nausea, vomiting, diarrhea. denies: abdominal pain, hematemesis, melena, hematochezia Genitourinary: denies: dysuria Musculoskeletal: denies: back pain Neurological: denies: weakness Hematological/Lymphatic: denies: easy bleeding ED Past Medical Hx - Past Medical History Previous Medical History?: Yes Hx Hypertension: Yes Hx CVA: No Hx Heart Attack/AMI: No Hx Congestive Heart Failure: No Hx Diabetes: No Hx Deep Vein Thrombosis: No Hx Pulmonary Embolism: No Hx GERD: No Hx Liver Disease: No Hx Renal Disease: No Hx Sickle Cell Disease: No Hx Arthritis: Yes (got) Hx Headaches / Migraines: No Hx Seizures: No Hx Kidney Stones: Yes Hx Psychiatric Treatment: Yes (opiate dependence, depression) Hx Asthma: No Hx COPD: No Hx Tuberculosis: No Hx Dementia: No Hx HIV: No Additional medical history: kidney stones, GOUT. shoulder dislocation - Surgical History Past Surgical History?: Yes Hx Coronary Stent: No Hx Open Heart Surgery: No Hx Pacemaker: No Hx Internal Defibrillator: No Hx Cholecystectomy: No Hx Appendectomy: No Hx Breast Surgery: No Additional Surgical History: tonsillectomy - Social History Smoking Status: Current Every Day Smoker Substance Use Type: Marijuana - Medications Home Medications: Home Medications Medication Instructions Recorded Confirmed Last Taken Type lisinopriL [Zestril TAB] 20 mg PO QDAY #30 tablet 05/02/19 07/05/19 Unknown Rx Ketorolac [Toradol] 10 mg PO Q8H PRN #20 tablet 08/17/19 Unknown Rx Ibuprofen [Motrin 800 MG tab] 800 mg PO Q8HR PRN #10 tablet 10/24/19 Unknown Rx Ketorolac [Toradol] 10 mg PO Q6H PRN #14 tablet 05/30/20 Unknown Rx Colchicine 0.6 mg PO DAILY 1 Days #3 capsule 11/06/20 Unknown Rx Indomethacin 50 mg PO Q8H #21 capsule 11/06/20 Unknown Rx Ibuprofen [Motrin] 600 mg PO Q8H PRN #20 tablet 11/10/20 Unknown Rx Chlorhexidine Mouthwash [Peridex] 15 ml MM BID #1 bottle 11/13/20 Unknown Rx Ninoska Root [Ninoska] 250 mg PO QID PRN #30 capsule 11/13/20 Unknown Rx Loperamide [Imodium] 2 mg PO Q2HR PRN #30 capsule 11/13/20 Unknown Rx Ondansetron [Zofran ODT TAB] 4 mg PO Q6HR PRN #20 tab.rapdis 11/13/20 Unknown Rx ED Physical Exam - General Limitations: No Limitations General appearance: alert, in no apparent distress - Head Head exam: Present: atraumatic, normocephalic - Eye Eye exam: Present: normal appearance, EOMI. Absent: nystagmus - ENT ENT exam: Present: normal exam, mucous membranes moist, normal external ear exam, other (Patient speaking in full sentences. There is no stridor. There is no dysphonia. No gingival abscesses noted. Poor dentition globally. No gingival erythema noted.) - Neck Neck exam: Present: normal inspection, full ROM. Absent: tenderness, meningism us - Respiratory Respiratory exam: Present: normal lung sounds bilaterally. Absent: respiratory distress, wheezes, rales, rhonchi, stridor, decreased breath sounds - Cardiovascular Cardiovascular Exam: Present: regular rate, normal rhythm, normal heart sounds. Absent: bradycardia, tachycardia, irregular rhythm, systolic murmur, diastolic murmur, rubs, gallop - GI/Abdominal GI/Abdominal exam: Present: soft, normal bowel sounds. Absent: distended, tenderness, guarding, rebound, rigid, pulsatile mass - Rectal Rectal exam: Present: deferred - Extremities Exam Extremities exam: Present: normal inspection, full ROM, other (2+ pulses noted in the bilateral upper and lower extremities. There is no palpable cord. negative Homans sign. Muscular compartments are soft. The pelvis is stable.). Absent: pedal edema, calf tenderness - Back Exam Back exam: Present: normal inspection, full ROM. Absent: tenderness, CVA tenderness (R), CVA tenderness (L), paraspinal tenderness, vertebral tenderness - Neurological Exam Neurological exam: Present: alert, oriented X3, normal gait, other (No facial droop. Tongue midline. Extraocular movements intact bilaterally. Facial sensation intact to light touch in V1, V2, V3 distribution bilaterally. 5 and a 5 strength in 4 extremities. Sensation intact to light touch in 4 ex tremities.). Absent: motor sensory deficit - Psychiatric Psychiatric exam: Present: normal affect, normal mood - Skin Skin exam: Present: warm, dry, intact, normal color. Absent: rash ED Course Vital Signs 11/12/20 21:56 Temperature 97.8 F Pulse Rate 86 Respiratory 18 Rate Blood Pressure 139/83 O2 Sat by Pulse 96 Oximetry ED Medical Decision Making - Lab Data Result diagrams: 11/12/20 22:52 11/12/20 22:52 Vital Signs 11/12/20 21:56 Temperature 97.8 F Pulse Rate 86 Respiratory 18 Rate Blood Pressure 139/83 O2 Sat by Pulse 96 Oximetry Lab Results 11/12/20 11/12/20 Range/Units 22:52 22:52 WBC 10.1 (4.5-11.0) K/mm3 RBC 4.44 (3.65-5.03) M/mm3 Hgb 13.8 (11.8-15.2) gm/dl Hct 39.6 (35.5-45.6) % MCV 89 (84-94) fl MCH 31 (28-32) pg MCHC 35 H (32-34) % RDW 14.4 (13.2-15.2) % Plt Count 221 (140-440) K/mm3 Lymph % (Auto) 32.7 (13.4-35.0) % Campbell % (Auto) 6.7 (0.0-7.3) % Eos % (Auto) 1.0 (0.0-4.3) % Baso % (Auto) 0.6 (0.0-1.8) % Lymph # (Auto) 3.3 (1.2-5.4) K/mm3 Campbell # (Auto) 0.7 (0.0-0.8) K/mm3 Eos # (Auto) 0.1 (0.0-0.4) K/mm3 Baso # (Auto) 0.1 (0.0-0.1) K/mm3 Seg Neutrophils % 59.0 (40.0-70.0) % Seg Neutrophils # 6.0 (1.8-7.7) K/mm3 Sodium 140 (137-145) mmol/L Potassium 3.8 (3.6-5.0) mmol/L Chloride 102.4 (98-107) mmol/L Carbon Dioxide 28 (22-30) mmol/L Anion Gap 13 mmol/L BUN 21 H (9-20) mg/dL Creatinine 0.9 (0.8-1.3) mg/dL Estimated GFR > 60 ml/min BUN/Creatinine Ratio 23 % Glucose 89 (75-100) mg/dL Calcium 9.2 (8.4-10.2) mg/dL Total Bilirubin 0.50 (0.1-1.2) mg/dL AST 18 (5-40) units/L ALT 12 (7-56) units/L Alkaline Phosphatase 105 (35-129) units/L Total Protein 6.3 (6.3-8.2) g/dL Albumin 4.3 (3.9-5) g/dL Albumin/Globulin Ratio 2.2 % Lipase 15 (13-60) units/L - Medical Decision Making Differential diagnosis, including but not limited to: Viral gastroenteritis, medication side effect Assessment and plan: 45-year-old gentleman with an articulated complaint of painless nausea, vomiting and diarrhea. No active vomiting in the emergency room. Drinking soda. Tolerating oral feeds. Abdomen soft and benign, without rebound, guarding or peritoneal signs. Playing on his cell phone on multiple repeat evaluations. Patient may discontinue Augmentin, we can start oral chlorhexidine rinses, he can follow-up with outpatient dental, can be discharged with as needed Zofran, and loperamide. Return precautions are reviewed. Critical care attestation.: If time is entered above; I have spent that time in minutes in the direct care of this critically ill patient, excluding procedure time. ED Disposition Clinical Impression: Dental caries, Nausea vomiting and diarrhea Disposition: - TO HOME OR SELFCARE Is pt being admited?: No Does the pt Need Aspirin: No Condition: Good Instructions: Nausea and Vomiting, Adult, Diarrhea, Adult, Preventive Dental Care, Adult Additional Instructions: Patient may discontinue Augmentin antibiotic. Recommend that patient take/use chlorhexidine mouthwash on a daily basis as directed. Recommend that patient brush teeth at least twice daily, and floss teeth at least once daily. Recommend follow-up with a dentist within the next week. Advance diet as tolerated, drink plenty of fluids, preferably water, or Pedialyte. Avoid sugary drinks, patient may advance to bread, rice, apples and toast as tolerated. Make sure to wash hands thoroughly with soap and water after having vomiting and/or diarrhea. Patient may take the Zofran medication, and ninoska medication, as needed for nausea and vomiting. Make take the loperamide, as needed for diarrhea. Please follow-up with the primary care doctor within the next week. Please return to the emergency room right away with new pain, worsening pain, migration of pain, projectile vomiting, change in mental status, confusion, inability to tolerate liquid feeds, new, worsened or different symptoms not present on the initial emergency room evaluation. Referrals: [facility] [Outside] - 3-5 Days [facility] [Provider Group] - 3-5 Days
== END 2020-11-13 01:00 | disposition home or self-care (01) ==
LOC: ED 21:48
DX: K02.9 Dental caries, unspecified (principal); R11.2 Nausea with vomiting, unspecified; R19.7 Diarrhea, unspecified; I10 Essential (primary) hypertension; M10.9 Gout, unspecified; F32.9 Major depressive disorder, single episode, unspecified; Z79.899 Other long term (current) drug therapy; Z88.2 Allergy status to sulfonamides; Z88.8 Allergy status to other drugs, medicaments and biological substances; Z90.49 Acquired absence of other specified parts of digestive tract
CPT/HCPCS: 36415; 80053; 83690; 85025; Q0162

== ENCOUNTER 2020-11-21 15:23 | Emergency (ER) | payer SELFPAY | END 2020-11-21 17:16 | disposition left against medical advice (07) | LOC: ED 15:23 | DX: M79.671 Pain in right foot (principal); Z53.21 Procedure and treatment not carried out due to patient leaving prior to being seen by health care provider ==

== ENCOUNTER 2020-11-21 19:51 | Emergency (ER) | payer SELFPAY ==
[2020-11-21 21:19] VITALS: BP 143/97
--- NOTE | 2020-11-21 21:57 | XRay Report ---
RIGHT FOOT 3 VIEW(S) INDICATION / CLINICAL INFORMATION: MAIN COMPARISON: None available. FINDINGS: BONES / JOINT(S): Multipartite medial hallux sesamoid. Moderate-severe degenerative change at the fir st MTP with articular/periarticular erosions. No acute fracture or dislocation. SOFT TISSUES: No significant abnormality. ADDITIONAL FINDINGS: None. Signer Name: Enoch Roque MD Signed: 11/21/2020 9:53 PM Workstation Name: [id number]
--- NOTE | 2020-11-21 23:19 | Emergency Department Report ---
ED General Adult HPI - General Chief complaint: Extremity Injury, Lower Stated complaint: RT FOOT SWELLING PAIN PUI?: No Time Seen by Provider: 11/21/20 21:39 Source: patient Mode of arrival: Ambulatory Limitations: No Limitations - History of Present Illness Initial comments: This is a 45-year-old male presents the ED complaining of right foot pain status post stepping in a pothole times yesterday. Patient states that he is having localized pain to his right big toe since the incident. Patient does note that he has a history of gout arthritis. Patient denies any deformity or inability to walk. Patient decides any swelling to the area. Patient does note that he has had aching throbbing pain shooting across the big toe and the second toe. He denies fever/chills/nausea vomiting or any other problems - Related Data Previous Rx's Medication Instructions Recorded Last Taken Type lisinopriL [Zestril TAB] 20 mg PO QDAY #30 tablet 05/02/19 Unknown Rx Ketorolac [Toradol] 10 mg PO Q8H PRN #20 tablet 08/17/19 Unknown Rx Ketorolac [Toradol] 10 mg PO Q6H PRN #14 tablet 05/30/20 Unknown Rx Colchicine 0.6 mg PO DAILY 1 Days #3 capsule 11/06/20 Unknown Rx Indomethacin 50 mg PO Q8H #21 capsule 11/06/20 Unknown Rx Ibuprofen [Motrin] 600 mg PO Q8H PRN #20 tablet 11/10/20 Unknown Rx Chlorhexidine Mouthwash [Peridex] 15 ml MM BID #1 bottle 11/13/20 Unknown Rx Ninoska Root [Ninoska] 250 mg PO QID PRN #30 capsule 11/13/20 Unknown Rx Loperamide [Imodium] 2 mg PO Q2HR PRN #30 capsule 11/13/20 Unknown Rx Ondansetron [Zofran ODT TAB] 4 mg PO Q6HR PRN #20 tab.rapdis 11/13/20 Unknown Rx Ibuprofen [Motrin 800 MG tab] 800 mg PO Q8HR PRN #20 tablet 11/21/20 Unknown Rx traMADoL [Ultram 50 MG tab] 50 mg PO Q6HR PRN #12 tablet 11/21/20 Unknown Rx Allergies Allergy/AdvReac Type Severity Reaction Status Date / Time sulfamethoxazole Allergy Hives Verified 10/24/19 10:35 [From Bactrim] trimethoprim [From Bactrim] Allergy Hives Verified 10/24/19 10:35 ED Review of Systems ROS: Stated complaint: RT FOOT SWELLING PAIN Other details as noted in HPI Comment: All other systems reviewed and negative ED Past Medical Hx - Past Medical History Previous Medical History?: Yes Hx Hypertension: Yes Hx CVA: No Hx Heart Attack/AMI: No Hx Congestive Heart Failure: No Hx Diabetes: No Hx Deep Vein Thrombosis: No Hx Pulmonary Embolism: No Hx GERD: No Hx Liver Disease: No Hx Renal Disease: No Hx Sickle Cell Disease: No Hx Arthritis: Yes Hx Headaches / Migraines: No Hx Seizures: No Hx Kidney Stones: Yes Hx Psychiatric Treatment: Yes (opiate dependence, depression) Hx Asthma: No Hx COPD: No Hx Tuberculosis: No Hx Dementia: No Hx HIV: No Additional medical history: kidney stones, GOUT. shoulder dislocation - Surgical History Past Surgical History?: Yes Hx Coronary Stent: No Hx Open Heart Surgery: No Hx Pacemaker: No Hx Internal Defibrillator: No Hx Cholecystectomy: No Hx Appendectomy: No Hx Breast Surgery: No Additional Surgical History: tonsillectomy - Social History Smoking Status: Never Smoker Substance Use Type: None - Medications Home Medications: Home Medications Medication Instructions Recorded Confirmed Last Taken Type lisinopriL [Zestril TAB] 20 mg PO QDAY #30 tablet 05/02/19 07/05/19 Unknown Rx Ketorolac [Toradol] 10 mg PO Q8H PRN #20 tablet 08/17/19 Unknown Rx Ketorolac [Toradol] 10 mg PO Q6H PRN #14 tablet 05/30/20 Unknown Rx Colchicine 0.6 mg PO DAILY 1 Days #3 capsule 11/06/20 Unknown Rx Indomethacin 50 mg PO Q8H #21 capsule 11/06/20 Unknown Rx Ibuprofen [Motrin] 600 mg PO Q8H PRN #20 tablet 11/10/20 Unknown Rx Chlorhexidine Mouthwash [Peridex] 15 ml MM BID #1 bottle 11/13/20 Unknown Rx Ninoska Root [Ninoska] 250 mg PO QID PRN #30 capsule 11/13/20 Unknown Rx Loperamide [Imodium] 2 mg PO Q2HR PRN #30 capsule 11/13/20 Unknown Rx Ondansetron [Zofran ODT TAB] 4 mg PO Q6HR PRN #20 tab.rapdis 11/13/20 Unknown Rx Ibuprofen [Motrin 800 MG tab] 800 mg PO Q8HR PRN #20 tablet 11/21/20 Unknown Rx traMADoL [Ultram 50 MG tab] 50 mg PO Q6HR PRN #12 tablet 11/21/20 Unknown Rx ED Physical Exam - General Limitations: No Limitations General appearance: alert, in no apparent distress - Head Head exam: Present: atraumatic, normocephalic - Eye Eye exam: Present: normal appearance - ENT ENT exam: Present: mucous membranes moist - Neck Neck exam: Present: normal inspection - Respiratory Respiratory exam: Present: normal lung sounds bilaterally. Absent: respiratory distress - Cardiovascular Cardiovascular Exam: Present: regular rate, normal rhythm. Absent: systolic murmur, diastolic murmur, rubs, gallop - GI/Abdominal GI/Abdominal exam: Present: soft, normal bowel sounds - Rectal Rectal exam: Present: deferred - Extremities Exam Extremities exam: Present: normal inspection, full ROM, tenderness (Mild tenderness to palpation, no swelling noted no ecchymosis, no deformity to the right foot or toes) - Back Exam Back exam: Present: normal inspection - Neurological Exam Neurological exam: Present: alert, oriented X3 - Psychiatric Psychiatric exam: Present: normal affect, normal mood - Skin Skin exam: Present: warm, dry, intact, normal color. Absent: rash ED Course Vital Signs 11/21/20 21:17 Temperature 97.8 F Pulse Rate 75 Respiratory 18 Rate Blood Pressure 143/97 O2 Sat by Pulse 98 Oximetry ED Medical Decision Making - Radiology Data Radiology results: report reviewed, image reviewed RIGHT FOOT 3 VIEW(S) INDICATION / CLINICAL INFORMATION: MAIN COMPARISON: None available. FINDINGS: BONES / JOINT(S): Multipartite medial hallux sesamoid. Moderate-severe degenerative change at the first MTP with articular/periarticular erosions. No acute fracture or dislocation. SOFT TISSUES: No significant abnormality. ADDITIONAL FINDINGS: None. Signer Name: Enoch Roque MD Signed: 11/21/2020 9:53 PM Workstation Name: [id number] Transcribed By: Dictated By: ENOCH ROQUE III Electronically Authenticated By: ENOCH ROQUE III Signed Date/Time: 11/21/202152 - Medical Decision Making 45-year-old male presents to ED with right foot/toe sprain ED course: Patient foot x-ray in the ED. X-ray shows no acute fractures or dislocation. Vital signs are normal patient is in no acute distress Discussed with patient follow-up with primary care physician. Discussed the patient and take medications as prescribed. Patient has no neurological deficit. Patient is alert and oriented 3 and understands all instructions given. Discussed drowsiness effect of tramadol makes her drowsy and not to operate machinery while taking tramadol ril Critical care attestation.: If time is entered above; I have spent that time in minutes in the direct care of this critically ill patient, excluding procedure time. ED Disposition Clinical Impression: Foot pain, right, Foot sprain Disposition: TO HOME OR SELFCARE Is pt being admited?: No Does the pt Need Aspirin: No Condition: Stable Instructions: How to Use Cold Therapy, [id number], Elastic Bandage and RICE Therapy, Foot Pain Additional Instructions: Make sure to follow up with the primary care physician as discussed. Take all your medications as you've been prescribed. If you have any worsening symptoms or develop new symptoms please return to ED immediately. Prescriptions: Ibuprofen [Motrin 800 MG tab] 800 mg PO Q8HR PRN #20 tablet PRN Reason: Pain , Severe (7-10) traMADoL [Ultram 50 MG tab] 50 mg PO Q6HR PRN #12 tablet PRN Reason: Pain Referrals: [facility] [Outside] - 3-5 Days [facility] [Outside] - 3-5 Days Forms: Work/School Release Form(ED) Time of Disposition: 23:32
== END 2020-11-22 | disposition home or self-care (01) ==
LOC: ED 19:51
DX: S93.601A Unspecified sprain of right foot, initial encounter (principal); I10 Essential (primary) hypertension; M19.90 Unspecified osteoarthritis, unspecified site; N20.0 Calculus of kidney; F32.9 Major depressive disorder, single episode, unspecified; Z98.890 Other specified postprocedural states; Z79.899 Other long term (current) drug therapy; Z88.2 Allergy status to sulfonamides; Z88.8 Allergy status to other drugs, medicaments and biological substances; W18.31XA Fall on same level due to stepping on an object, initial encounter; Y93.89 Activity, other specified; Y92.89 Other specified places as the place of occurrence of the external cause; Y99.8 Other external cause status
CPT/HCPCS: 99283

== ENCOUNTER 2020-11-22 16:38 | Emergency (ER) | payer SELFPAY ==
[2020-11-22 16:43] VITALS: BP 181/119
== END 2020-11-22 21:10 | disposition left against medical advice (07) ==
LOC: ED 16:38
DX: M79.671 Pain in right foot (principal); Z53.21 Procedure and treatment not carried out due to patient leaving prior to being seen by health care provider

== ENCOUNTER 2020-11-23 02:05 | Emergency (ER) | payer SELFPAY ==
--- NOTE | 2020-11-23 04:03 | Emergency Department Report ---
ED General Adult HPI - General Stated complaint: RT FOOT SWOLLEN - History of Present Illness Initial comments: Patient is a 45-year-old white male with a history of chronic anxiety and depression, chronic opiate dependence, hypertension, osteoarthritis and chronic gout and kidney stones who presents to the ED with requesting for medication refill of his depression medications which he ran out of 2 weeks ago. Patient denies suicidal or homicidal ideation. Patient denies chest pain, shortness of breath, change in vision, fall, traumatic injury, dizziness, syncope, abdominal pain, hallucinations or fever and chills. MD Complaint: Depression medications refil -: Sudden, week(s) (2) Radiation: non-radiation Severity scale (0 -10): 0 Quality: dull Consistency: constant Improves with: none Worsens with: none Associated Symptoms: denies other symptoms. denies: confusion, chest pain, cough, diaphoresis, fever/chills, headaches, loss of appetite, malaise, nausea/vomiting, rash, seizure, shortness of breath, syncope, weakness, other Treatments Prior to Arrival: none - Related Data Previous Rx's Medication Instructions Recorded Last Taken Type lisinopriL [Zestril TAB] 20 mg PO QDAY #30 tablet 05/02/19 Unknown Rx Ketorolac [Toradol] 10 mg PO Q8H PRN #20 tablet 08/17/19 Unknown Rx Ketorolac [Toradol] 10 mg PO Q6H PRN #14 tablet 05/30/20 Unknown Rx Colchicine 0.6 mg PO DAILY 1 Days #3 capsule 11/06/20 Unknown Rx Indomethacin 50 mg PO Q8H #21 capsule 11/06/20 Unknown Rx Ibuprofen [Motrin] 600 mg PO Q8H PRN #20 tablet 11/10/20 Unknown Rx Chlorhexidine Mouthwash [Peridex] 15 ml MM BID #1 bottle 11/13/20 Unknown Rx Ninoska Root [Ninoska] 250 mg PO QID PRN #30 capsule 11/13/20 Unknown Rx Loperamide [Imodium] 2 mg PO Q2HR PRN #30 capsule 11/13/20 Unknown Rx Ondansetron [Zofran ODT TAB] 4 mg PO Q6HR PRN #20 tab.rapdis 11/13/20 Unknown Rx Ibuprofen [Motrin 800 MG tab] 800 mg PO Q8HR PRN #20 tablet 11/21/20 Unknown Rx traMADoL [Ultram 50 MG tab] 50 mg PO Q6HR PRN #12 tablet 11/21/20 Unknown Rx Venlafaxine HCl [Effexor Xr] 150 mg PO DAILY #30 cap.er.24h 11/23/20 Unknown Rx Allergies Allergy/AdvReac Type Severity Reaction Status Date / Time sulfamethoxazole Allergy Hives Verified 11/22/20 16:41 [From Bactrim] trimethoprim [From Bactrim] Allergy Hives Verified 11/22/20 16:41 ED Review of Systems ROS: Stated complaint: RT FOOT SWOLLEN Other details as noted in HPI Constitutional: denies: chills, fever Eyes: denies: eye pain, eye discharge, vision change ENT: denies: ear pain, throat pain Respiratory: denies: cough, shortness of breath, wheezing Cardiovascular: denies: chest pain, palpitations Endocrine: no symptoms reported Gastrointestinal: denies: abdominal pain, nausea, vomiting, diarrhea Genitourinary: denies: urgency, dysuria Musculoskeletal: denies: back pain, joint swelling, arthralgia Skin: denies: rash, lesions Neurological: denies: headache, weakness, paresthesias Psychiatric: anxiety. denies: depression Hematological/Lymphatic: denies: easy bleeding, easy bruising ED Past Medical Hx - Past Medical History Hx Hypertension: Yes Hx CVA: No Hx Heart Attack/AMI: No Hx Congestive Heart Failure: No Hx Diabetes: No Hx Deep Vein Thrombosis: No Hx Pulmonary Embolism: No Hx GERD: No Hx Liver Disease: No Hx Renal Disease: No Hx Sickle Cell Disease: No Hx Arthritis: Yes Hx Headaches / Migraines: No Hx Seizures: No Hx Kidney Stones: Yes Hx Psychiatric Treatment: Yes (opiate dependence, depression) Hx Asthma: No Hx COPD: No Hx Tuberculosis: No Hx Dementia: No Hx HIV: No Additional medical history: kidney stones, GOUT. shoulder dislocation - Surgical History Hx Coronary Stent: No Hx Open Heart Surgery: No Hx Pacemaker: No Hx Internal Defibrillator: No Hx Cholecystectomy: No Hx Appendectomy: No Hx Breast Surgery: No Additional Surgical History: tonsillectomy - Social History Smoking Status: Never Smoker Substance Use Type: None - Medications Home Medications: Home Medications Medication Instructions Recorded Confirmed Last Taken Type lisinopriL [Zestril TAB] 20 mg PO QDAY #30 tablet 05/02/19 07/05/19 Unknown Rx Ketorolac [Toradol] 10 mg PO Q8H PRN #20 tablet 08/17/19 Unknown Rx Ketorolac [Toradol] 10 mg PO Q6H PRN #14 tablet 05/30/20 Unknown Rx Colchicine 0.6 mg PO DAILY 1 Days #3 capsule 11/06/20 Unknown Rx Indomethacin 50 mg PO Q8H #21 capsule 11/06/20 Unknown Rx Ibuprofen [Motrin] 600 mg PO Q8H PRN #20 tablet 11/10/20 Unknown Rx Chlorhexidine Mouthwash [Peridex] 15 ml MM BID #1 bottle 11/13/20 Unknown Rx Ninoska Root [Ninoska] 250 mg PO QID PRN #30 capsule 11/13/20 Unknown Rx Loperamide [Imodium] 2 mg PO Q2HR PRN #30 capsule 11/13/20 Unknown Rx Ondansetron [Zofran ODT TAB] 4 mg PO Q6HR PRN #20 tab.rapdis 11/13/20 Unknown Rx Ibuprofen [Motrin 800 MG tab] 800 mg PO Q8HR PRN #20 tablet 11/21/20 Unknown Rx traMADoL [Ultram 50 MG tab] 50 mg PO Q6HR PRN #12 tablet 11/21/20 Unknown Rx Venlafaxine HCl [Effexor Xr] 150 mg PO DAILY #30 cap.er.24h 11/23/20 Unknown Rx ED Physical Exam - General General appearance: alert, in no apparent distress - Head Head exam: Present: atraumatic, normocephalic, normal inspection - Eye Eye exam: Present: normal appearance, PERRL, EOMI Pupils: Present: normal accommodation - ENT ENT exam: Present: normal exam, normal orophraynx, mucous membranes moist, TM's normal bilaterally, normal external ear exam - Neck Neck exam: Present: normal inspection, full ROM - Respiratory Respiratory exam: Present: normal lung sounds bilaterally. Absent: respiratory distress, wheezes, rales, chest wall tenderness, accessory muscle use, decreased breath sounds, prolonged expiratory - Cardiovascular Cardiovascular Exam: Present: regular rate, normal rhythm, normal heart sounds. Absent: systolic murmur, diastolic murmur, rubs, gallop - GI/Abdominal GI/Abdominal exam: Present: soft, normal bowel sounds. Absent: tenderness, guarding, hyperactive bowel sounds, hypoactive bowel sounds - Extremities Exam Extremities exam: Present: normal inspection, full ROM, normal capillary refill - Back Exam Back exam: Present: normal inspection, full ROM. Absent: tenderness, CVA tenderness (R), CVA tenderness (L), muscle spasm, paraspinal tenderness, vertebral tenderness - Neurological Exam Neurological exam: Present: alert, oriented X3, CN II-XII intact, normal gait, reflexes normal - Psychiatric Psychiatric exam: Present: normal affect, normal mood, anxious - Skin Skin exam: Present: warm, dry, intact, normal color. Absent: rash ED Medical Decision Making - Medical Decision Making This is a 45-year-old white male with a history of chronic anxiety and depression, chronic opiate dependence, hypertension, osteoarthritis and chronic gout and kidney stones who presents to the ED with requesting for medication refill of his depression medications which he ran out of 2 weeks ago. Patient denies suicidal or homicidal ideation. In the ED, patient is alert and oriented x3 and is not in any distress but anxious. Patient was discharged home with a prescription of his anxiety medication and was advised to follow-up with his psychiatrist in 3 to 5 days for reevaluation. Patient was advised return to the ED immediately if symptoms get worse. - Differential Diagnosis Anxiety; depression; chronic pain syndrome Critical care attestation.: If time is entered above; I have spent that time in minutes in the direct care of this critically ill patient, excluding procedure time. ED Disposition Clinical Impression: Chronic anxiety, Chronic depression Disposition: DC-01 TO HOME OR SELFCARE Is pt being admited?: No Does the pt Need Aspirin: No Condition: Stable Instructions: Persistent Depressive Disorder, Adult, [id number], Generalized Anxiety Disorder, Adult Additional Instructions: Follow-up with your primary care physician and your psychiatrist in 3 to 5 days for reevaluation. Return to the ED immediately if symptoms get worse. Prescriptions: Venlafaxine HCl [Effexor Xr] 150 mg PO DAILY #30 cap.er.24h Referrals: [facility] [Provider Group] - 3-5 Days Time of Disposition: 04:08 Print Language: MAURITIAN
[2020-11-23 07:03] VITALS: BP 136/66
== END 2020-11-23 04:30 | disposition home or self-care (01) ==
LOC: ED 02:05
DX: F32.9 Major depressive disorder, single episode, unspecified (principal); F41.9 Anxiety disorder, unspecified; I10 Essential (primary) hypertension; M19.90 Unspecified osteoarthritis, unspecified site; M10.9 Gout, unspecified; Z87.442 Personal history of urinary calculi; Z79.899 Other long term (current) drug therapy; Z88.2 Allergy status to sulfonamides; Z88.8 Allergy status to other drugs, medicaments and biological substances; Z90.49 Acquired absence of other specified parts of digestive tract
CPT/HCPCS: 99282

== ENCOUNTER 2020-12-02 01:23 | Emergency (ER) | payer SELFPAY ==
[2020-12-02 01:33] VITALS: BP 157/107
--- NOTE | 2020-12-02 01:40 | Emergency Department Report ---
ED Back Pain/Injury HPI - General Chief Complaint: Back Pain/Injury Stated Complaint: LOWER RIGHT SIDE BACK PAIN Time Seen by Provider: 12/02/20 01:32 Source: patient Limitations: No Limitations - History of Present Illness Initial Comments: 45-year-old male presents emerged department complaining of acute on chronic back pain and had extensive ataxia. States that he was at home doing nothing strenuous when he had onset of the pain will continue to nag him and did not respond to Tylenol so he came to the emergency department reports having this pain several times in the past with his diet follow-up with any of the recommended providers to help assist with determining the exact cause. No loss of bowel bladder no saddle paresthesia no fevers, chills, sweats MD Complaint: back pain -: Gradual Similar Symptoms Previously: Yes Place: home Radiation: none Severity: mild, moderate (Across his lower back) Quality: dull, aching Consistency: constant Improves With: none Worsens With: movement, sitting upright Context: other Associated Symptoms: denies: chest pain, numbness, incontinence, fever/chills, headaches, loss of appetite, nausea/vomiting, seizure, syncope - Related Data Previous Rx's Medication Instructions Recorded Last Taken Type lisinopriL [Zestril TAB] 20 mg PO QDAY #30 tablet 05/02/19 Unknown Rx Ketorolac [Toradol] 10 mg PO Q6H PRN #14 tablet 05/30/20 Unknown Rx Colchicine 0.6 mg PO DAILY 1 Days #3 capsule 11/06/20 Unknown Rx Indomethacin 50 mg PO Q8H #21 capsule 11/06/20 Unknown Rx Ibuprofen [Motrin] 600 mg PO Q8H PRN #20 tablet 11/10/20 Unknown Rx Chlorhexidine Mouthwash [Peridex] 15 ml MM BID #1 bottle 11/13/20 Unknown Rx Ninoska Root [Ninoska] 250 mg PO QID PRN #30 capsule 11/13/20 Unknown Rx Loperamide [Imodium] 2 mg PO Q2HR PRN #30 capsule 11/13/20 Unknown Rx Ondansetron [Zofran ODT TAB] 4 mg PO Q6HR PRN #20 tab.rapdis 11/13/20 Unknown Rx Ibuprofen [Motrin 800 MG tab] 800 mg PO Q8HR PRN #20 tablet 11/21/20 Unknown Rx traMADoL [Ultram 50 MG tab] 50 mg PO Q6HR PRN #12 tablet 11/21/20 Unknown Rx Venlafaxine HCl [Effexor Xr] 150 mg PO DAILY #30 cap.er.24h 11/23/20 Unknown Rx Ketorolac [Toradol] 10 mg PO Q8H PRN #20 tablet 12/02/20 Unknown Rx methOCARBAMOL [Robaxin TAB] 500 mg PO Q6H #20 tablet 12/02/20 Unknown Rx Allergies Allergy/AdvReac Type Severity Reaction Status Date / Time sulfamethoxazole Allergy Hives Verified 11/22/20 16:41 [From Bactrim] trimethoprim [From Bactrim] Allergy Hives Verified 11/22/20 16:41 ED Review of Systems ROS: Stated complaint: LOWER RIGHT SIDE BACK PAIN Other details as noted in HPI Comment: All other systems reviewed and negative ED Past Medical Hx - Past Medical History Previous Medical History?: Yes Hx Hypertension: Yes Hx CVA: No Hx Heart Attack/AMI: No Hx Congestive Heart Failure: No Hx Diabetes: No Hx Deep Vein Thrombosis: No Hx Pulmonary Embolism: No Hx GERD: No Hx Liver Disease: No Hx Renal Disease: No Hx Sickle Cell Disease: No Hx Arthritis: Yes Hx Headaches / Migraines: No Hx Seizures: No Hx Kidney Stones: Yes Hx Psychiatric Treatment: Yes (opiate dependence, depression) Hx Asthma: No Hx COPD: No Hx Tuberculosis: No Hx Dementia: No Hx HIV: No Additional medical history: kidney stones, GOUT. shoulder dislocation - Surgical History Past Surgical History?: Yes Hx Coronary Stent: No Hx Open Heart Surgery: No Hx Pacemaker: No Hx Internal Defibrillator: No Hx Cholecystectomy: No Hx Appendectomy: No Hx Breast Surgery: No Additional Surgical History: tonsillectomy - Social History Smoking Status: Current Every Day Smoker - Medications Home Medications: Home Medications Medication Instructions Recorded Confirmed Last Taken Type lisinopriL [Zestril TAB] 20 mg PO QDAY #30 tablet 05/02/19 07/05/19 Unknown Rx Ketorolac [Toradol] 10 mg PO Q6H PRN #14 tablet 05/30/20 Unknown Rx Colchicine 0.6 mg PO DAILY 1 Days #3 capsule 11/06/20 Unknown Rx Indomethacin 50 mg PO Q8H #21 capsule 11/06/20 Unknown Rx Ibuprofen [Motrin] 600 mg PO Q8H PRN #20 tablet 11/10/20 Unknown Rx Chlorhexidine Mouthwash [Peridex] 15 ml MM BID #1 bottle 11/13/20 Unknown Rx Ninoska Root [Ninoska] 250 mg PO QID PRN #30 capsule 11/13/20 Unknown Rx Loperamide [Imodium] 2 mg PO Q2HR PRN #30 capsule 11/13/20 Unknown Rx Ondansetron [Zofran ODT TAB] 4 mg PO Q6HR PRN #20 tab.rapdis 11/13/20 Unknown Rx Ibuprofen [Motrin 800 MG tab] 800 mg PO Q8HR PRN #20 tablet 11/21/20 Unknown Rx traMADoL [Ultram 50 MG tab] 50 mg PO Q6HR PRN #12 tablet 11/21/20 Unknown Rx Venlafaxine HCl [Effexor Xr] 150 mg PO DAILY #30 cap.er.24h 11/23/20 Unknown Rx Ketorolac [Toradol] 10 mg PO Q8H PRN #20 tablet 12/02/20 Unknown Rx methOCARBAMOL [Robaxin TAB] 500 mg PO Q6H #20 tablet 12/02/20 Unknown Rx ED Physical Exam - General Limitations: No Limitations General appearance: alert, in no apparent distress - Head Head exam: Present: atraumatic, normocephalic - Eye Eye exam: Present: normal appearance - ENT ENT exam: Present: mucous membranes moist - Neck Neck exam: Present: normal inspection - Respiratory Respiratory exam: Present: normal lung sounds bilaterally. Absent: respiratory distress - Cardiovascular Cardiovascular Exam: Present: regular rate, normal rhythm. Absent: systolic murmur, diastolic murmur, rubs, gallop - GI/Abdominal GI/Abdominal exam: Present: soft, normal bowel sounds - Rectal Rectal exam: Present: deferred - Extremities Exam Extremities exam: Present: normal inspection - Back Exam Back exam: Present: normal inspection, tenderness, muscle spasm, paraspinal tenderness, other (Gait coordinated and smooth turns or axillary axis with no limitations. No deformities noted no no bruising no CVA tenderness seated seated straight leg raise is normal). Absent: CVA tenderness (R), CVA tenderness (L), vertebral tenderness, rash noted - Neurological Exam Neurological exam: Present: alert, oriented X3, CN II-XII intact, reflexes normal - Psychiatric Psychiatric exam: Present: normal affect, normal mood - Skin Skin exam: Present: warm, dry, intact, normal color. Absent: rash ED Course Vital Signs 12/02/20 01:31 Temperature 97.7 F Pulse Rate 80 Respiratory 17 Rate Blood Pressure 157/107 O2 Sat by Pulse 100 Oximetry ED Medical Decision Making - Medical Decision Making Pt presents the emergency department complaining of back pain most consistent with lumbago back Pain Most Consistent with Strain/Contusion. Differential Diagnosis Includes Lumbar Go Versus Musculoskeletal Spasm, Strain Versus Sciatica. No Back Pain Red Flags on History or Physical. Presentation Not Consistent with Malignancy, Fracture, Cauda Equina, Abdominal Aortic Aneurysm, Viscus Perforation, Pulmonary Embolism, Renal Colic, Pyelonephritis. Patient reports no B symptoms, trauma trauma, incontinence, saddle anesthesia, distal weakness, urinary symptoms and is a febrile. Critical care attestation.: If time is entered above; I have spent that time in minutes in the direct care of this critically ill patient, excluding procedure time. ED Disposition Clinical Impression: Lumbago Disposition: - TO HOME OR SELFCARE Is pt being admited?: No Does the pt Need Aspirin: No Condition: Stable Instructions: Chronic Back Pain, Back Injury Prevention Additional Instructions: What does Lumbago mean? You may use the term lumbago or you may have never heard of it so what exactly is it? Lumbago is a general word for lower back pain. The lower back is referred to as the lumbar spine, hence the term lumbago. It is estimated that 80% of Americans will experience lower back pain in their lifetime. Many physicians and health rn primary care consider lumbago to be an outdated term, and it not used very much anymore. Current medical journals are not using lumbago but it is still used colloquially. Why dont we use lumbago anymore? It is an older word, and has been phased out because medical practitioners find it too vague and ambiguous. Physicians today try to use more specific terminology lower back pain is still an umbrella term, but the root cause needs to be determined. Causes of lower back pain More specific words for the various conditions that cause lower back pain are preferred. Some potential causes of lower back pain include: muscle strain Nonspecific Pain that is confined to the back only, and whose cause is not yet determined. Sciatica Pain from the sciatic nerve, the symptoms include lower back pain, shooting pain or burning sensation in leg, and numbness or weakness in leg. Spinal Stenosis A condition in which the spinal canal narrows and becomes compressed, putting pressure on nerves and the spinal cord. It usually occurs in people over age 50, and can cause pain in the neck, legs, and arms as well. Osteoarthritis This type of arthritis happens over time due to wear and tear on the joints. Rheumatoid arthritis can also contribute to lower back pain. Herniated disc When the jelly-like center of a disc in the spinal column slips out. This could be because of trauma, injury, or aging and general wear and tear. It is also called a slipped disc or bulging disc. Facet Joint pain Arthritis can occur in the lumbar facet joints, causing lower back pain. Acute back pain You may know this better as throwing out your back. This is sharp pain but it usually clears up on its own. Other conditions such as kidney disease, appendicitis, or bladder infection General lower back pain can also occur because of pressure on the lower back from sitting too long or leading a sedentary lifestyle. Your spine is a column, and when you sit for too long, there is pressure on the lumbar (lower) portion of your spine. The best way to prevent lower back pain is to live a healthy lifestyle. Of course some back pain is due to aging or wear and tear, but leading an active lifestyle while maintaining a healthy weight and not smoking can help immensely. . Prescriptions: methOCARBAMOL [Robaxin TAB] 500 mg PO Q6H #20 tablet Ketorolac [Toradol] 10 mg PO Q8H PRN #20 tablet PRN Reason: Pain Referrals: PEDRO DUNN MD [Primary Care Provider] - 3-5 Days
== END 2020-12-02 01:45 | disposition home or self-care (01) ==
LOC: ED 01:23
DX: M54.5 Low back pain (principal); I10 Essential (primary) hypertension; F32.9 Major depressive disorder, single episode, unspecified; M10.9 Gout, unspecified; M19.90 Unspecified osteoarthritis, unspecified site; F17.200 Nicotine dependence, unspecified, uncomplicated; Z98.890 Other specified postprocedural states; Z90.49 Acquired absence of other specified parts of digestive tract; Z79.899 Other long term (current) drug therapy; Z88.2 Allergy status to sulfonamides; Z88.8 Allergy status to other drugs, medicaments and biological substances
CPT/HCPCS: 99282